=== PATIENT | female | born 1990 | race Caucasian/White ===

== ENCOUNTER 2018-07-14 21:34 | Emergency (ER) | payer OTHER ==
--- NOTE | 2018-07-14 23:51 | ED ---
Anxiety HPI - General Chief Complaint: Anxiety Stated Complaint: Anxiety, panic attacks Time Seen by Provider: 07/14/18 23:12 Source: patient, RN notes reviewed, old records reviewed Mode of arrival: ambulatory - History of Present Illness Initial Comments: This is a 28-year-old female going to significant stressor, patient with friends oncologist . Patient's feeling very stressed about this event. She also suffers from underlying anxiety and panic attacks at baseline. Patient states all symptoms have persisted MD Complaint: anxiety, heart racing -: days(s) Symptoms: dyspnea, palpitations, dry mouth, sense of impending doom Place: home Previous History of Same: Yes Severity: moderate Quality: improving Provoking factors: emotional stress, recent /illness of family member Improves With: nothing Worsens With: nothing Associated symptoms: chest pain, palpitations, anorexia - Related Data Home Medications: Home Medications Medication Instructions Recorded Confirmed No Known Home Medications 07/14/18 07/14/18 Allergies/Adverse Reactions: Allergies Allergy/AdvReac Type Severity Reaction Status Date / Time No Known Allergies Allergy Verified 07/14/18 21:51 Review of Systems ROS Statement: Those systems with pertinent positive or pertinent negative responses have been documented in the HPI. ROS Other: All systems not noted in ROS Statement are negative. Past Medical History Past Medical History: Thyroid Disorder History of Any Multi-Drug Resistant Organisms: None Reported Past Surgical History: No Surgical Hx Reported Past Psychological History: Anxiety, Panic Disorder Smoking Status: Current every day smoker Past Alcohol Use History: None Reported Past Drug Use History: None Reported General Exam Limitations: no limitations General appearance: alert, in no apparent distress, anxious Head exam: Present: atraumatic, normocephalic, normal inspection Eye exam: Present: normal appearance, PERRL, EOMI. Absent: scleral icterus, conjunctival injection, periorbital swelling ENT exam: Present: normal exam, mucous membranes moist Neck exam: Present: normal inspection. Absent: tenderness, meningismus, lymphadenopathy Respiratory exam: Present: normal lung sounds bilaterally. Absent: respiratory distress, wheezes, rales, rhonchi, stridor Cardiovascular Exam: Present: regular rate, normal rhythm, normal heart sounds. Absent: systolic murmur, diastolic murmur, rubs, gallop, clicks GI/Abdominal exam: Present: soft, normal bowel sounds. Absent: distended, tenderness, guarding, rebound, rigid Extremities exam: Present: normal inspection, full ROM, normal capillary refill. Absent: tenderness, pedal edema, joint swelling, calf tenderness Back exam: Present: normal inspection Neurological exam: Present: alert, oriented X3, CN II-XII intact Psychiatric exam: Present: normal affect, normal mood Skin exam: Present: warm, dry, intact, normal color. Absent: rash Course Vital Signs 07/14/18 07/15/18 21:47 00:22 Temperature 98.1 F 97.3 F L Pulse Rate 71 70 Respiratory 18 16 Rate Blood Pressure 132/83 128/70 O2 Sat by Pulse 100 100 Oximetry Medical Decision Making - Medical Decision Making 28 female the ER for evaluation anxiety panic attack and grief reaction. Patient given medication here in the ER feeling better and can be discharged home Disposition Clinical Impression: Acute anxiety, Panic attack Disposition: HOME SELF-CARE Instructions: Generalized Anxiety Disorder (ED) Is patient prescribed a controlled substance at d/c from ED?: No Referrals: Devin Birch MD [Primary Care Provider] - 1-2 days
[2018-07-15] MEDS ORDERED: LORazepam 1 MG TAB PO STA (00:11)
[2018-07-15] MEDS ORDERED: DIAZEPAM 5 MG TAB PO STA (00:11)
[2018-07-15 00:24] VITALS: BP 128/70; PULSE 70; RESP 16; TEMP 97.3
== END 2018-07-15 00:24 | disposition home or self-care (01) ==
LOC: EC 21:34
DX: F41.0 Panic disorder [episodic paroxysmal anxiety] (principal); F17.200 Nicotine dependence, unspecified, uncomplicated
CPT/HCPCS: 99283

== ENCOUNTER 2018-07-16 23:18 | Emergency (ER) | payer OTHER ==
[2018-07-16] MEDS ORDERED: ALPRAZolam 1 MG TAB PO STA (23:52)
--- NOTE | 2018-07-17 00:37 | ED ---
Anxiety HPI - General Chief Complaint: Anxiety Stated Complaint: Anxiety Time Seen by Provider: 07/16/18 23:32 Source: patient Mode of arrival: ambulatory - History of Present Illness Initial Comments: 28-year-old female past medical history of anxiety, and panic attacks presenting today for chief complaint of anxiety x 1.5 days. Patient states that she was seen here emergency department to 3 days ago following the of her uncle, which she states has brought her great anxiety. Pt states that she was treated with ativan and valium which helped with her anxiety allowing her to abort her symptoms and sleep that night. Pt states that about a day ago the patients anxiety began again, it starts as a chest pressure in the chest, and she has thoughts of impeding . Pt states that she cannot kick the anxiety with her usual home remedies including breathing exercises so she presented for evaluation. Upon arrival pt VS stable, pt complains of chest pressure, feelings of impeding . Pt denies fever, chills, cough, hemoptysis , calf pain, recent travel, history of blood clots/cancer, leg swelling, recent surgery/fracture, jaw pain, UE parathesias, or any other associated symptoms. Pt appears anxious upon arrival. - Related Data Home Medications: Previous Rx's Medication Instructions Recorded ALPRAZolam [Xanax] 0.25 mg PO HS PRN 3 Days #3 tab 07/17/18 Allergies/Adverse Reactions: Allergies Allergy/AdvReac Type Severity Reaction Status Date / Time No Known Allergies Allergy Verified 07/14/18 21:51 Review of Systems ROS Statement: Those systems with pertinent positive or pertinent negative responses have been documented in the HPI. ROS Other: All systems not noted in ROS Statement are negative. Constitutional: Denies: fever, chills, night sweats ENT: Denies: ear pain, throat pain Respiratory: Denies: cough, dyspnea, wheezes, hemoptysis, stridor Cardiovascular: Reports: chest pain (chest pressure ). Denies: palpitations, dyspnea on exertion Endocrine: Denies: fatigue Gastrointestinal: Denies: abdominal pain, nausea, vomiting, diarrhea, constipation, hematemesis, melena Genitourinary: Denies: urgency, dysuria Musculoskeletal: Denies: back pain Skin: Denies: rash, lesions Neurological: Denies: headache, weakness, numbness, paresthesias, confusion, abnormal gait Past Medical History Past Medical History: Thyroid Disorder History of Any Multi-Drug Resistant Organisms: None Reported Past Surgical History: No Surgical Hx Reported Past Psychological History: Anxiety, Panic Disorder Smoking Status: Current every day smoker Past Alcohol Use History: None Reported Past Drug Use History: None Reported General Exam - General Exam Comments Initial Comments: General: The patient is awake and alert, appears anxious but well. Eye: Pupils are equal, round and reactive to light, extra-ocular movements are intact. No nystagmus. There is normal conjunctiva bilaterally. No signs of icterus. Ears, nose, mouth and throat: There are moist mucous membranes and no oral lesions. Neck: The neck is supple, there is no tenderness or JVD. Cardiovascular: There is a regular rate and rhythm. No murmur, rub or gallop is appreciated. Respiratory: Lungs are clear to auscultation, respirations are non-labored, breath sounds are equal. No wheezes, stridor, rales, or rhonchi. Gastrointestinal: Soft, non-distended, non-tender abdomen without masses or organomegaly noted. There is no rebound or guarding present. No CVA tenderness. Bowel sounds are unremarkable. Musculoskeletal: Normal ROM, no tenderness. Strength 5/5. Sensation intact. Pulses equal bilaterally 2+. Neurological: A&O x 3. CN II-XII intact, There are no obvious motor or sensory deficits. Coordination appears grossly intact. Speech is normal. Skin: Skin is warm and dry and no rashes or lesions are noted. Psychiatric: Cooperative, appropriate mood & affect, normal judgment. Limitations: no limitations Course Vital Signs 07/16/18 07/17/18 07/17/18 23:27 01:05 02:17 Temperature 97.9 F 97.3 F L Pulse Rate 62 70 76 Respiratory 20 18 18 Rate Blood Pressure 134/83 113/68 119/70 O2 Sat by Pulse 95 98 99 Oximetry Medical Decision Making - Medical Decision Making 28yo with cc of anxiety attack. EKG showed nonspecific ST depression, remainder unremarkable. Cardiac profile as well as troponins negative. Chest x-ray negative. Patient given 1 mg of Xanax which he stated alleviate her symptoms. Patient does have follow-up with primary care provider scheduled this week. Patient was given outside prescription for 0.25 mg Xanax for panic attacks as needed, 3 tabs. The use of and as well as risks of xanax were discussed at length with patient. Patient verbalizes understanding. Patient states that she is ready for discharge. After discussing case with Dr. Bishop we feel patient is stable for discharge and the symptoms are due to panic attack/ anxiety. Patient denies any suicidal homicidal ideations. Pt is accompanied by significant other for mode of transportation home. Return parameters as well as all findings discussed at length the patient. Patient verbalizes understanding. Patient denied questions at this time. Patient is agreeable discharge. - Lab Data Result diagrams: 07/17/18 01:00 07/17/18 01:00 Lab Results 07/17/18 07/17/18 07/17/18 Range/Units 01:00 01:00 01:00 WBC 8.6 (3.8-10.6) k/uL RBC 4.85 (3.80-5.40) m/uL Hgb 13.8 (11.4-16.0) gm/dL Hct 42.1 (34.0-46.0) % MCV 86.9 (80.0-100.0) fL MCH 28.4 (25.0-35.0) pg MCHC 32.7 (31.0-37.0) g/dL RDW 13.0 (11.5-15.5) % Plt Count 287 (150-450) k/uL Neutrophils % 77 % Lymphocytes % 17 % Monocytes % 4 % Eosinophils % 1 % Basophils % 0 % Neutrophils # 6.6 (1.3-7.7) k/uL Lymphocytes # 1.5 (1.0-4.8) k/uL Monocytes # 0.3 (0-1.0) k/uL Eosinophils # 0.1 (0-0.7) k/uL Basophils # 0.0 (0-0.2) k/uL D-Dimer (<0.60) mg/L FEU Sodium 141 (137-145) mmol/L Potassium 3.6 (3.5-5.1) mmol/L Chloride 109 H (98-107) mmol/L Carbon Dioxide 24 (22-30) mmol/L Anion Gap 8 mmol/L BUN 10 (7-17) mg/dL Creatinine 0.61 (0.52-1.04) mg/dL Est GFR (CKD-EPI)AfAm >90 (>60 ml/min/1.73 sqM) Est GFR (CKD-EPI)NonAf >90 (>60 ml/min/1.73 sqM) Glucose 99 (74-99) mg/dL Calcium 10.7 H (8.4-10.2) mg/dL Total Bilirubin 0.6 (0.2-1.3) mg/dL AST 23 (14-36) U/L ALT 26 (9-52) U/L Alkaline Phosphatase 50 (38-126) U/L Total Creatine Kinase 37 (30-135) U/L CK-MB (CK-2) <0.2 (0.0-2.4) ng/mL CK-MB (CK-2) Rel Index Troponin I <0.012 (0.000-0.034) ng/mL Total Protein 7.6 (6.3-8.2) g/dL Albumin 4.7 (3.5-5.0) g/dL 07/17/18 Range/Units 01:00 WBC (3.8-10.6) k/uL RBC (3.80-5.40) m/uL Hgb (11.4-16.0) gm/dL Hct (34.0-46.0) % MCV (80.0-100.0) fL MCH (25.0-35.0) pg MCHC (31.0-37.0) g/dL RDW (11.5-15.5) % Plt Count (150-450) k/uL Neutrophils % % Lymphocytes % % Monocytes % % Eosinophils % % Basophils % % Neutrophils # (1.3-7.7) k/uL Lymphocytes # (1.0-4.8) k/uL Monocytes # (0-1.0) k/uL Eosinophils # (0-0.7) k/uL Basophils # (0-0.2) k/uL D-Dimer <0.17 (<0.60) mg/L FEU Sodium (137-145) mmol/L Potassium (3.5-5.1) mmol/L Chloride (98-107) mmol/L Carbon Dioxide (22-30) mmol/L Anion Gap mmol/L BUN (7-17) mg/dL Creatinine (0.52-1.04) mg/dL Est GFR (CKD-EPI)AfAm (>60 ml/min/1.73 sqM) Est GFR (CKD-EPI)NonAf (>60 ml/min/1.73 sqM) Glucose (74-99) mg/dL Calcium (8.4-10.2) mg/dL Total Bilirubin (0.2-1.3) mg/dL AST (14-36) U/L ALT (9-52) U/L Alkaline Phosphatase (38-126) U/L Total Creatine Kinase (30-135) U/L CK-MB (CK-2) (0.0-2.4) ng/mL CK-MB (CK-2) Rel Index Troponin I (0.000-0.034) ng/mL Total Protein (6.3-8.2) g/dL Albumin (3.5-5.0) g/dL Disposition Clinical Impression: Anxiety Disposition: HOME SELF-CARE Instructions: Generalized Anxiety Disorder (ED) Additional Instructions: Please use medication as discussed. Please follow-up with family doctor in the next 2 days.. Please return to emergency room if the symptoms increase or worsen or for any other concerns. Prescriptions: ALPRAZolam [Xanax] 0.25 mg PO HS PRN 3 Days #3 tab PRN Reason: Anxiety Is patient prescribed a controlled substance at d/c from ED?: No Referrals: Dale Birch DO [Primary Care Provider] - 1-2 days Time of Disposition: 02:02
[2018-07-17 01:08] VITALS: RESP 18
--- NOTE | 2018-07-17 01:13 | XR ---
EXAMINATION TYPE: XR chest 2V DATE OF EXAM: 07/17/2018 COMPARISON: NONE HISTORY: Chest pain TECHNIQUE: Frontal and lateral views of the chest are obtained. FINDINGS: Heart and mediastinum are normal. Lungs are clear. Diaphragm is normal. Bony thorax appear s normal. Pulmonary vascularity is normal. IMPRESSION: Normal chest.
[2018-07-17 01:23] LABS: Basophils % (A) 0 %; Eosinophils # (A) 0.1 k/uL (0-0.7); Eosinophils % (A) 1 %; HCT 42.1 % (34.0-46.0); HGB 13.8 gm/dL (11.4-16.0); Lymphocytes # (A) 1.5 k/uL (1.0-4.8); Lymphocytes % (A) 17 %; MCH 28.4 pg (25.0-35.0); MCHC 32.7 g/dL (31.0-37.0); MCV 86.9 fL (80.0-100.0); Mean Platelet Volume 7.1; Monocytes # (A) 0.3 k/uL (0-1.0); Monocytes % (A) 4 %; Neutrophils # (A) 6.6 k/uL (1.3-7.7); Neutrophils % (A) 77 %; Platelet Count 287 k/uL (150-450); RBC 4.85 m/uL (3.80-5.40); WBC 8.6 k/uL (3.8-10.6)
[2018-07-17 01:35] LABS: ALT 26 U/L (9-52); AST 23 U/L (14-36); Albumin 4.7 g/dL (3.5-5.0); Alkaline Phosphatase 50 U/L (38-126); Anion Gap 8 mmol/L; Blood Urea Nitrogen 10 mg/dL (7-17); Calcium 10.7 mg/dL (8.4-10.2); Carbon Dioxide 24 mmol/L (22-30); Chloride 109 mmol/L (98-107); Glucose 99 mg/dL (74-99); Potassium 3.6 mmol/L (3.5-5.1); Sodium 141 mmol/L (137-145); Total Bilirubin 0.6 mg/dL (0.2-1.3); Total Protein 7.6 g/dL (6.3-8.2)
[2018-07-17 01:46] LABS: Creatine Kinase 37 U/L (30-135)
[2018-07-17 01:59] LABS: Creatine Kinase MB <0.2 ng/mL (0.0-2.4); Troponin I <0.012 ng/mL (0.000-0.034)
[2018-07-17 02:19] VITALS: BP 119/70; PULSE 76; TEMP 97.3
== END 2018-07-17 02:18 | disposition home or self-care (01) ==
LOC: EC 23:18
DX: F41.9 Anxiety disorder, unspecified (principal); F17.200 Nicotine dependence, unspecified, uncomplicated
CPT/HCPCS: 36415; 71046; 80053; 82550; 82553; 84484; 85025; 85379; 93005; 99284

== ENCOUNTER 2018-07-19 17:06 | Emergency (ER) | payer OTHER ==
[2018-07-19] MEDS ORDERED: KETOROLAC 30 MG/ML 1 ML VIAL IVP STA (18:01)
[2018-07-19] MEDS ORDERED: ONDANSETRON 4 MG/2 ML VIAL IVP STA (18:01)
[2018-07-19] MEDS ORDERED: SODIUM CHLORIDE 0.9% 1,000 ML IV ONE (18:01)
--- NOTE | 2018-07-19 18:04 | ED ---
General Adult HPI - General Chief complaint: Anxiety Stated complaint: NAUSEA X 5 DAYS, CONFUSION Time Seen by Provider: 07/19/18 17:40 Source: patient, RN notes reviewed, old records reviewed Mode of arrival: ambulatory Limitations: no limitations - History of Present Illness Initial comments: Patient's 28-year-old female presents emergency department today with 4 days of anxiety. She's been emergency department twice for her panic attacks. She is discharged the second time with prescription for Xanax. Patient was seen by her PCP and recently started on Lexapro today. Patient states she's been taking medicine. She reports that today she feels like she has nausea and abdominal pain she is a poor appetite unable to eat. Patient reports that she also complains of a migraine-like headache. Patient states that she has not taken any recent Xanax. Patient states that all of her symptoms seem to start 40 years ago after her uncle . - Related Data Home Medications Medication Instructions Recorded Confirmed Albuterol Inhaler [Ventolin Hfa 2 puff INHALATION RT-BID 07/19/18 07/19/18 Inhaler] Escitalopram [Lexapro] 10 mg PO DAILY 07/19/18 07/19/18 Multivitamin [Multivitamins Adult 1 tab PO DAILY 07/19/18 07/19/18 Gummies] Previous Rx's Medication Instructions Recorded ALPRAZolam [Xanax] 0.25 mg PO HS PRN 3 Days #3 tab 07/17/18 Allergies Allergy/AdvReac Type Severity Reaction Status Date / Time No Known Allergies Allergy Verified 07/19/18 17:19 Review of Systems ROS Statement: Those systems with pertinent positive or pertinent negative responses have been documented in the HPI. ROS Other: All systems not noted in ROS Statement are negative. Past Medical History Past Medical History: Thyroid Disorder History of Any Multi-Drug Resistant Organisms: None Reported Past Surgical History: No Surgical Hx Reported Past Psychological History: Anxiety, Panic Disorder Smoking Status: Current every day smoker Past Alcohol Use History: None Reported Past Drug Use History: None Reported General Exam - General Exam Comments Initial Comments: Well appearing 28-year-old female. Alert and oriented. Patient appears in no distress. General: Well appearing, well nourished, in no distress. Oriented x 3, normal mood and affect . Ambulating without difficulty. Skin: Good turgor, no rash, unusual bruising or prominent lesions Hair: Normal texture and distribution. HEENT: Head: Normocephalic, atraumatic, no visible or palpable masses, depressions, or scaring. Eyes: Visual acuity intact, conjunctiva clear, sclera non-icteric, EOM intact, PERRL. Ears: EACs clear, TMs translucent & cone of light visualized. hearing intact. Nose: No external lesions, mucosa non-inflamed, septum and turbinates normal Mouth: Mucous membranes moist, no mucosal lesions. Teeth/Gums: No obvious caries or periodontal disease. No gingival inflammation or significant resorption. Pharynx: Mucosa non-inflamed, no tonsillar hypertrophy or exudate Neck: Supple, without lesions, bruits, or adenopathy, thyroid non-enlarged and non-tender Heart: No cardiomegaly or thrills; regular rate and rhythm, no murmur or gallop Lungs: Clear to auscultation and percussion Abdomen: Bowel sounds normal, no tenderness, organomegaly, masses, or hernia Back: Spine normal without deformity or tenderness, no CVA tenderness Extremities: No amputations or deformities, cyanosis, edema or varicosities, peripheral pulses intact Musculoskeletal: Normal gait and station. No misalignment, asymmetry, crepitation, defects, tenderness, masses, effusions, decreased range of motion, instability, atrophy or abnormal strength or tone in the head, neck, spine, ribs , pelvis or extremities. Neurologic: CN 2-12 normal. Sensation to pain, touch, and proprioception normal. DTRs normal in upper and lower extremities. No pathologic reflexes. Psychiatric: Oriented X3, Patient appears anxious. Memory intact. Limitations: no limitations Course Vital Signs 07/19/18 17:16 Temperature 98.7 F Pulse Rate 106 H Respiratory 18 Rate Blood Pressure 121/87 O2 Sat by Pulse 99 Oximetry Medical Decision Making - Medical Decision Making 28-year-old female presents emergency room today with complaints of a she's not been eating well. Complaint of nausea as well. She has no abdominal tenderness. Otherwise appears clinically well on examination. No neural deficits. States she just feels foggy in her mind is racing. Discussed at this time we'll treat the Patient with IV fluids and migraine cocktail due to her migraine-like headache. She does report some relief at this time. We'll discharge the Patient with referrals for counseling and close follow-up with PCP. QUESTIONS answered. - Lab Data Lab Results 07/19/18 07/19/18 Range/Units 18:47 18:47 Urine Color Light Yellow Urine Appearance Clear (Clear) Urine pH 6.5 (5.0-8.0) Ur Specific [place] 1.005 (1.001-1.035) Urine Protein Negative (Negative) Urine Glucose (UA) Negative (Negative) Urine Ketones Trace H (Negative) Urine Blood Negative (Negative) Urine Nitrite Negative (Negative) Urine Bilirubin Negative (Negative) Urine Urobilinogen <2.0 (<2.0) mg/dL Ur Leukocyte Esterase Negative (Negative) Urine HCG, Qual Not Detected (Not Detectd) Disposition Clinical Impression: Anxiety Disposition: HOME SELF-CARE Condition: Good Instructions: Generalized Anxiety Disorder (ED) Additional Instructions: Patient advised to follow-up with PCP. Return to the emergency department if any alarming signs or symptoms occur. Is patient prescribed a controlled substance at d/c from ED?: No Referrals: Dale Birch DO [Primary Care Provider] - 1-2 days Time of Disposition: 20:06
[2018-07-19 19:01] LABS: Appearance,Urine Clear (Clear); Bilirubin,Urine Negative (Negative); Blood,Urine Negative (Negative); Color,Urine Light Yellow; Glucose,Urine (UA) Negative (Negative); Ketones,Urine Trace (Negative); Leukocyte Esterase,Urine Negative (Negative); Nitrite,Urine Negative (Negative); PH, Urine 6.5 (5.0-8.0); Protein,Urine Negative (Negative); Specific Gravity,Urine 1.005 (1.001-1.035); Urobilinogen,Urine <2.0 mg/dL (<2.0)
[2018-07-19] MEDS ORDERED: LORazepam 2 MG/ML INJ IV STA (19:38)
[2018-07-19] MEDS ORDERED: ORPHENADRINE 30 MG/ML 2 ML VIAL IVP STA (20:05)
[2018-07-19 20:38] VITALS: BP 131/67; PULSE 79; RESP 16; TEMP 97.9
== END 2018-07-19 20:42 | disposition home or self-care (01) ==
LOC: EC 17:06
DX: F41.0 Panic disorder [episodic paroxysmal anxiety] (principal); R51 Headache; F17.200 Nicotine dependence, unspecified, uncomplicated; Z79.899 Other long term (current) drug therapy
CPT/HCPCS: 81003; 81025; 99284; 96374; 96375 ×3; 96361 ×2; J2060; J2360; J2405; J1885

== ENCOUNTER 2018-07-25 20:42 | Emergency (ER) | payer OTHER ==
--- NOTE | 2018-07-25 22:24 | ED ---
General Adult HPI - General Chief complaint: Chest Pain Stated complaint: Chest feels warm, light headed, anxiety Time Seen by Provider: 07/25/18 21:43 Source: patient, RN notes reviewed Mode of arrival: ambulatory Limitations: no limitations - History of Present Illness Initial comments: Patient is a pleasant 28-year-old female presenting to the emergency department with chest fluttering. Onset of symptoms was prior to arrival. Symptoms lasted around 1 hour. Patient had fluttering in her chest. Patient states there may have been some mild indigestion as well. Patient did have some swelling of both of her palms. Patient states she suffers from bad anxiety and believes her symptoms are from her anxiety. Patient states she has had several recent visits for anxiety. Patient did recently see her doctor and was started on Lexapro. Patient is symptom-free at this time other than feeling anxious. - Related Data Home Medications Medication Instructions Recorded Confirmed Escitalopram [Lexapro] 10 mg PO HS 07/19/18 07/25/18 Ibuprofen [Motrin Ib] 200 mg PO Q6H PRN 07/25/18 07/25/18 Ondansetron Odt [Zofran Odt] 4 mg PO Q12HR PRN 07/25/18 07/25/18 Ranitidine HCl [Zantac] 150 mg PO DAILY PRN 07/25/18 07/25/18 Allergies Allergy/AdvReac Type Severity Reaction Status Date / Time No Known Allergies Allergy Verified 07/25/18 22:00 Review of Systems ROS Statement: Those systems with pertinent positive or pertinent negative responses have been documented in the HPI. ROS Other: All systems not noted in ROS Statement are negative. Constitutional: Denies: fever Eyes: Denies: eye pain ENT: Denies: ear pain Respiratory: Denies: cough Cardiovascular: Reports: palpitations Endocrine: Denies: fatigue Gastrointestinal: Denies: abdominal pain, vomiting Genitourinary: Denies: dysuria Musculoskeletal: Denies: back pain Skin: Denies: rash Neurological: Denies: weakness Psychiatric: Reports: anxiety Past Medical History Past Medical History: Thyroid Disorder History of Any Multi-Drug Resistant Organisms: None Reported Past Surgical History: No Surgical Hx Reported Past Psychological History: Anxiety, Panic Disorder Smoking Status: Current every day smoker Past Alcohol Use History: None Reported Past Drug Use History: None Reported General Exam Limitations: no limitations General appearance: alert, in no apparent distress Head exam: Present: atraumatic Eye exam: Present: normal appearance, PERRL ENT exam: Present: normal oropharynx Neck exam: Present: normal inspection Respiratory exam: Present: normal lung sounds bilaterally Cardiovascular Exam: Present: regular rate, normal rhythm Expanded Peripheral pulses: 2+: Radial (R), Radial (L), Dorsalis Pedis (R), Dorsalis Pedis (L) GI/Abdominal exam: Present: soft. Absent: tenderness Extremities exam: Present: normal inspection. Absent: pedal edema, calf tenderness Neurological exam: Present: alert Psychiatric exam: Present: normal affect, normal mood Skin exam: Present: normal color Course Vital Signs 07/25/18 21:04 Temperature 98.6 F Pulse Rate 96 Respiratory 18 Rate Blood Pressure 128/89 O2 Sat by Pulse 100 Oximetry EKG Findings - EKG Comments: EKG Findings:: Sinus rhythm at 75. WI 104. QRS 76. QT 356. QTc 397. Normal axis. Normal QRS. No acute ST change. Medical Decision Making - Medical Decision Making Patient reevaluated and resting comfortably in bed. Patient symptom-free at this time. Patient updated on results and need for follow-up. - Lab Data Result diagrams: 07/25/18 22:09 07/25/18 22:09 Lab Results 07/25/18 07/25/18 07/25/18 Range/Units 22:09 22:09 22:09 WBC 7.4 (3.8-10.6) k/uL RBC 4.75 (3.80-5.40) m/uL Hgb 14.5 (11.4-16.0) gm/dL Hct 40.5 (34.0-46.0) % MCV 85.3 (80.0-100.0) fL MCH 30.5 (25.0-35.0) pg MCHC 35.8 (31.0-37.0) g/dL RDW 12.9 (11.5-15.5) % Plt Count 289 (150-450) k/uL Neutrophils % 63 % Lymphocytes % 29 % Monocytes % 6 % Eosinophils % 1 % Basophils % 0 % Neutrophils # 4.6 (1.3-7.7) k/uL Lymphocytes # 2.2 (1.0-4.8) k/uL Monocytes # 0.5 (0-1.0) k/uL Eosinophils # 0.1 (0-0.7) k/uL Basophils # 0.0 (0-0.2) k/uL PT (9.0-12.0) sec INR (<1.2) APTT (22.0-30.0) sec Sodium 140 (137-145) mmol/L Potassium 3.8 (3.5-5.1) mmol/L Chloride 108 H (98-107) mmol/L Carbon Dioxide 24 (22-30) mmol/L Anion Gap 8 mmol/L BUN 7 (7-17) mg/dL Creatinine 0.54 (0.52-1.04) mg/dL Est GFR (CKD-EPI)AfAm >90 (>60 ml/min/1.73 sqM) Est GFR (CKD-EPI)NonAf >90 (>60 ml/min/1.73 sqM) Glucose 82 (74-99) mg/dL Calcium 9.9 (8.4-10.2) mg/dL Magnesium 2.1 (1.6-2.3) mg/dL Total Bilirubin 1.0 (0.2-1.3) mg/dL AST 20 (14-36) U/L ALT 34 (9-52) U/L Alkaline Phosphatase 42 (38-126) U/L Total Creatine Kinase 34 (30-135) U/L CK-MB (CK-2) <0.2 (0.0-2.4) ng/mL CK-MB (CK-2) Rel Index Troponin I <0.012 (0.000-0.034) ng/mL Total Protein 7.5 (6.3-8.2) g/dL Albumin 4.6 (3.5-5.0) g/dL 07/25/18 Range/Units 22:09 WBC (3.8-10.6) k/uL RBC (3.80-5.40) m/uL Hgb (11.4-16.0) gm/dL Hct (34.0-46.0) % MCV (80.0-100.0) fL MCH (25.0-35.0) pg MCHC (31.0-37.0) g/dL RDW (11.5-15.5) % Plt Count (150-450) k/uL Neutrophils % % Lymphocytes % % Monocytes % % Eosinophils % % Basophils % % Neutrophils # (1.3-7.7) k/uL Lymphocytes # (1.0-4.8) k/uL Monocytes # (0-1.0) k/uL Eosinophils # (0-0.7) k/uL Basophils # (0-0.2) k/uL PT 12.2 H (9.0-12.0) sec INR 1.3 H (<1.2) APTT 25.7 (22.0-30.0) sec Sodium (137-145) mmol/L Potassium (3.5-5.1) mmol/L Chloride (98-107) mmol/L Carbon Dioxide (22-30) mmol/L Anion Gap mmol/L BUN (7-17) mg/dL Creatinine (0.52-1.04) mg/dL Est GFR (CKD-EPI)AfAm (>60 ml/min/1.73 sqM) Est GFR (CKD-EPI)NonAf (>60 ml/min/1.73 sqM) Glucose (74-99) mg/dL Calcium (8.4-10.2) mg/dL Magnesium (1.6-2.3) mg/dL Total Bilirubin (0.2-1.3) mg/dL AST (14-36) U/L ALT (9-52) U/L Alkaline Phosphatase (38-126) U/L Total Creatine Kinase (30-135) U/L CK-MB (CK-2) (0.0-2.4) ng/mL CK-MB (CK-2) Rel Index Troponin I (0.000-0.034) ng/mL Total Protein (6.3-8.2) g/dL Albumin (3.5-5.0) g/dL - Radiology Data Radiology results: image reviewed (Chest x-ray shows no acute process) Disposition Clinical Impression: Palpitations Disposition: HOME SELF-CARE Condition: Stable Instructions: Heart Palpitations (ED), Anxiety (ED) Additional Instructions: Please follow-up with primary care physician in the next day or 2 for recheck. Return for chest pain, difficulty breathing, worsening or changing symptoms or other concerns. Is patient prescribed a controlled substance at d/c from ED?: No Referrals: Dale Birch DO [Primary Care Provider] - 1-2 days Time of Disposition: 00:14
--- NOTE | 2018-07-25 22:32 | XR ---
EXAMINATION: XR chest 2V DATE AND TIME: 07/25/2018 9:18 PM CLINICAL INDICATION: Pain TECHNIQUE: PA and lateral COMPARISON: 07/17/2018 FINDINGS: The lungs are clear. The pleural spaces are negative. The cardiac silhouette is not enlarged. The remainder of the mediastinal silhouette is unremarkable. The skeletal structures and soft tissues are negative for acute findings. IMPRESSION: NO ACUTE PROCESS.
[2018-07-25 23:11] LABS: ALT 34 U/L (9-52); AST 20 U/L (14-36); Albumin 4.6 g/dL (3.5-5.0); Alkaline Phosphatase 42 U/L (38-126); Anion Gap 8 mmol/L; Blood Urea Nitrogen 7 mg/dL (7-17); Calcium 9.9 mg/dL (8.4-10.2); Carbon Dioxide 24 mmol/L (22-30); Chloride 108 mmol/L (98-107); Glucose 82 mg/dL (74-99); Magnesium 2.1 mg/dL (1.6-2.3); Potassium 3.8 mmol/L (3.5-5.1); Sodium 140 mmol/L (137-145); Total Protein 7.5 g/dL (6.3-8.2)
[2018-07-25 23:14] LABS: INR 1.3 (<1.2); Partial Thromboplastin Time 25.7 sec (22.0-30.0); Prothrombin Time 12.2 sec (9.0-12.0)
[2018-07-25 23:21] LABS: Basophils % (A) 0 %; Eosinophils # (A) 0.1 k/uL (0-0.7); Eosinophils % (A) 1 %; HCT 40.5 % (34.0-46.0); HGB 14.5 gm/dL (11.4-16.0); Lymphocytes # (A) 2.2 k/uL (1.0-4.8); Lymphocytes % (A) 29 %; MCH 30.5 pg (25.0-35.0); MCHC 35.8 g/dL (31.0-37.0); MCV 85.3 fL (80.0-100.0); Mean Platelet Volume 7.6; Monocytes # (A) 0.5 k/uL (0-1.0); Monocytes % (A) 6 %; Neutrophils # (A) 4.6 k/uL (1.3-7.7); Neutrophils % (A) 63 %; Platelet Count 289 k/uL (150-450); RBC 4.75 m/uL (3.80-5.40); RDW 12.9 % (11.5-15.5); WBC 7.4 k/uL (3.8-10.6)
[2018-07-25 23:39] LABS: Creatine Kinase 34 U/L (30-135)
[2018-07-25 23:51] LABS: Creatine Kinase MB <0.2 ng/mL (0.0-2.4); Troponin I <0.012 ng/mL (0.000-0.034)
[2018-07-26 00:27] VITALS: BP 117/75; PULSE 84; RESP 16; TEMP 98.5
== END 2018-07-26 00:25 | disposition home or self-care (01) ==
LOC: EC 20:42
DX: R00.2 Palpitations (principal); M79.89 Other specified soft tissue disorders; F41.0 Panic disorder [episodic paroxysmal anxiety]; F17.200 Nicotine dependence, unspecified, uncomplicated; Z79.899 Other long term (current) drug therapy
CPT/HCPCS: 36415; 71046; 80053; 82550; 82553; 83735; 84484; 85025; 85610; 85730; 93005; 99285

== ENCOUNTER 2018-08-07 14:06 | Emergency (ER) | payer BC ==
[2018-08-07 14:22] VITALS: BP 126/86; PULSE 99; RESP 18; TEMP 98.6
[2018-08-07] MEDS ORDERED: MECLIZINE 12.5 MG TAB PO STA (16:14)
--- NOTE | 2018-08-07 16:14 | ED ---
General Adult HPI - General Chief complaint: Headache Stated complaint: Dizziness, sharp pain in head Time Seen by Provider: 08/07/18 15:43 Source: patient, RN notes reviewed Mode of arrival: ambulatory Limitations: no limitations - History of Present Illness Initial comments: 28-year-old female presents emergency Department chief complaint of dizziness and headache. Patient's had some ongoing issues in which she's had several ER visits and PCP visits. Patient states that she woke up moved quickly twice and states that she had room spinning dizziness. Patient states has resolved essentially though she has mild residual. She also became very flushed, hot feeling felt she was in a pass out. Patient denies any current chest pain, shortness breath. She does struggle with anxiety which she is on Lexapro and Ativan both new Medications. Patient denies any focal weakness. States her headache is shooting pain from the backside of her head towards her eyes. Denies any blurred vision no focal weakness. - Related Data Home Medications Medication Instructions Recorded Confirmed Escitalopram [Lexapro] 10 mg PO HS 07/19/18 08/07/18 LORazepam [Ativan] 0.5 mg PO DAILY 08/07/18 08/07/18 Previous Rx's Medication Instructions Recorded Meclizine [Antivert] 25 mg PO TID PRN #15 tab 08/07/18 Allergies Allergy/AdvReac Type Severity Reaction Status Date / Time No Known Allergies Allergy Verified 08/07/18 15:25 Review of Systems ROS Statement: Those systems with pertinent positive or pertinent negative responses have been documented in the HPI. ROS Other: All systems not noted in ROS Statement are negative. Past Medical History Past Medical History: Thyroid Disorder History of Any Multi-Drug Resistant Organisms: None Reported Past Surgical History: No Surgical Hx Reported Past Psychological History: Anxiety, Panic Disorder Smoking Status: Current every day smoker Past Alcohol Use History: None Reported Past Drug Use History: None Reported General Exam Limitations: no limitations General appearance: alert, in no apparent distress Head exam: Present: atraumatic, normocephalic, normal inspection Eye exam: Present: normal appearance, PERRL, EOMI. Absent: scleral icterus, conjunctival injection, periorbital swelling ENT exam: Present: normal exam, normal oropharynx, mucous membranes moist Neck exam: Present: normal inspection, full ROM. Absent: tenderness, meningismus, lymphadenopathy Respiratory exam: Present: normal lung sounds bilaterally. Absent: respiratory distress, wheezes, rales, rhonchi, stridor Cardiovascular Exam: Present: regular rate, normal rhythm, normal heart sounds. Absent: systolic murmur, diastolic murmur, rubs, gallop, clicks Extremities exam: Present: other (Fall range of motion of upper and lower extremities) Neurological exam: Present: alert, oriented X3, CN II-XII intact, reflexes normal. Absent: motor sensory deficit Skin exam: Present: warm, dry, intact, normal color. Absent: rash Course Vital Signs 08/07/18 14:20 Temperature 98.6 F Pulse Rate 99 Respiratory 18 Rate Blood Pressure 126/86 O2 Sat by Pulse 99 Oximetry EKG Findings - EKG Comments: EKG Findings:: EKG performed at 14:26 sinus rhythm with short OH rate of 90 OH 120 QRS 78 QT status QTC 3:30/413 there is no delta wave noted Medical Decision Making - Medical Decision Making 28-year-old female sent for multiple complaints dizziness, ongoing headaches. Patient has had multiple evaluations. Patient had CT here which is negative for acute intracranial hemorrhage or mass. Patient did have some vertigo-type symptoms was improved with Antivert. Patient follow-up neurology return parameters were discussed. Disposition Clinical Impression: Headache, Vertigo Disposition: HOME SELF-CARE Condition: Stable Instructions: Acute Headache (ED) Additional Instructions: Please return to the Emergency Department if symptoms worsen or any other concerns. Prescriptions: Meclizine [Antivert] 25 mg PO TID PRN #15 tab PRN Reason: Vertigo Is patient prescribed a controlled substance at d/c from ED?: No Referrals: None,Stated [Primary Care Provider] - 1-2 days Time of Disposition: 17:22
--- NOTE | 2018-08-07 17:04 | CT ---
EXAMINATION TYPE: CT brain wo con DATE OF EXAM: 08/07/2018 COMPARISON: None HISTORY: Headache, dizziness and head pressure. CT DLP: 1024.4 mGycm. Automated Exposure Control for Dose Reduction was Utilized. TECHNIQUE: CT scan of the head is performed without contrast. FINDINGS: Ventricles and sulci appear normal. There is no mass effect nor midline shift. There is no sign of intracranial hemorrhage. The calvarium is intact. IMPRESSION: Negative CT scan of the brain..
== END 2018-08-07 17:29 | disposition home or self-care (01) ==
LOC: EC 14:06
DX: R51 Headache (principal); R42 Dizziness and giddiness; R23.2 Flushing; F41.0 Panic disorder [episodic paroxysmal anxiety]; F17.200 Nicotine dependence, unspecified, uncomplicated; Z79.899 Other long term (current) drug therapy
CPT/HCPCS: 70450; 93005; 99284

== ENCOUNTER 2018-08-13 13:45 | Emergency (ER) | payer BC ==
[2018-08-13 13:57] VITALS: TEMP 98.1
[2018-08-13] MEDS ORDERED: SODIUM CHLORIDE 0.9% 1,000 ML IV STA (14:45)
[2018-08-13] MEDS ORDERED: ONDANSETRON 4 MG/2 ML VIAL IVP STA (14:45)
[2018-08-13 15:22] LABS: Basophils % (A) 0 %; Eosinophils % (A) 1 %; HCT 42.4 % (34.0-46.0); HGB 14.6 gm/dL (11.4-16.0); Lymphocytes # (A) 0.8 k/uL (1.0-4.8); Lymphocytes % (A) 14 %; MCHC 34.5 g/dL (31.0-37.0); Mean Platelet Volume 7.2; Monocytes # (A) 0.3 k/uL (0-1.0); Monocytes % (A) 4 %; Neutrophils % (A) 81 %; Platelet Count 282 k/uL (150-450); RBC 4.87 m/uL (3.80-5.40); RDW 13.2 % (11.5-15.5); WBC 6.2 k/uL (3.8-10.6)
[2018-08-13 15:27] LABS: Appearance,Urine Clear (Clear); Bilirubin,Urine Negative (Negative); Blood,Urine Negative (Negative); Color,Urine Light Yellow; Glucose,Urine (UA) Negative (Negative); Ketones,Urine Negative (Negative); Leukocyte Esterase,Urine Negative (Negative); Nitrite,Urine Negative (Negative); Protein,Urine Negative (Negative); Specific Gravity,Urine 1.003 (1.001-1.035); Urobilinogen,Urine <2.0 mg/dL (<2.0)
[2018-08-13 15:31] LABS: ALT 28 U/L (9-52); AST 18 U/L (14-36); Albumin 4.6 g/dL (3.5-5.0); Alkaline Phosphatase 50 U/L (38-126); Amylase 48 U/L (30-110); Anion Gap 8 mmol/L; Blood Urea Nitrogen 7 mg/dL (7-17); Calcium 10.1 mg/dL (8.4-10.2); Carbon Dioxide 29 mmol/L (22-30); Chloride 107 mmol/L (98-107); Glucose 97 mg/dL (74-99); Lipase 135 U/L (23-300); Magnesium 1.9 mg/dL (1.6-2.3); Sodium 144 mmol/L (137-145); Total Bilirubin 0.7 mg/dL (0.2-1.3); Total Protein 7.5 g/dL (6.3-8.2)
--- NOTE | 2018-08-13 15:34 | ED ---
General Adult HPI - General Chief complaint: Recheck/Abnormal Lab/Rx Stated complaint: Nausea Time Seen by Provider: 08/13/18 14:37 Source: patient, RN notes reviewed Mode of arrival: ambulatory Limitations: no limitations - History of Present Illness Initial comments: This is a 28-year-old female presents emergency Department with multiple complaints. Patient's had several ER visits at multiple hospitals for same problems. Patient states that she has been told her to her anxiety. Patient states she does have underlying anxiety which she takes Lexapro and Ativan for. She states that he morning she wakes up feeling nauseated and she is very shaky. Patient states that she fills throughout the day states that she feels hungry but cannot eat. Patient states that she's also had headaches and dizziness. She did have CT which was negative. Patient follow-up with her therapist and PCP. They told her this is still her anxiety causing her issues. Patient does not believe it and feels that there something else wrong with her. Patient's concerned that she may have Lyme disease, thyroid dysfunction. Patient states that she did have lab work recently which was unremarkable. Patient denies any chance . She states that she just had her mental cycle. Denies any dysuria, hematuria, change in bowel habits. - Related Data Home Medications Medication Instructions Recorded Confirmed Escitalopram [Lexapro] 10 mg PO HS 07/19/18 08/13/18 LORazepam [Ativan] 0.5 mg PO DAILY PRN 08/07/18 08/13/18 Previous Rx's Medication Instructions Recorded Omeprazole [PriLOSEC] 20 mg PO AC-BRKFST #14 cap 08/13/18 Ondansetron Odt [Zofran Odt] 4 mg PO Q8HR PRN #10 tab 08/13/18 Allergies Allergy/AdvReac Type Severity Reaction Status Date / Time No Known Allergies Allergy Verified 08/13/18 14:24 Review of Systems ROS Statement: Those systems with pertinent positive or pertinent negative responses have been documented in the HPI. ROS Other: All systems not noted in ROS Statement are negative. Past Medical History Past Medical History: Thyroid Disorder History of Any Multi-Drug Resistant Organisms: None Reported Past Surgical History: No Surgical Hx Reported Past Psychological History: Anxiety, Panic Disorder Smoking Status: Current every day smoker Past Alcohol Use History: None Reported Past Drug Use History: None Reported General Exam Limitations: no limitations General appearance: alert, in no apparent distress Head exam: Present: atraumatic, normocephalic, normal inspection Eye exam: Present: normal appearance, PERRL, EOMI. Absent: scleral icterus, conjunctival injection, periorbital swelling ENT exam: Present: normal exam, normal oropharynx, mucous membranes moist, TM's normal bilaterally, normal external ear exam Neck exam: Present: normal inspection, full ROM. Absent: tenderness, meningismus, lymphadenopathy Respiratory exam: Present: normal lung sounds bilaterally. Absent: respiratory distress, wheezes, rales, rhonchi, stridor Cardiovascular Exam: Present: regular rate, normal rhythm, normal heart sounds. Absent: systolic murmur, diastolic murmur, rubs, gallop, clicks GI/Abdominal exam: Present: soft, normal bowel sounds. Absent: distended, tenderness, guarding, rebound, rigid Back exam: Present: full ROM. Absent: tenderness, CVA tenderness (R), CVA tenderness (L) Neurological exam: Present: alert, oriented X3, CN II-XII intact, reflexes normal, other (Finger to nose intact bilaterally ). Absent: motor sensory deficit Psychiatric exam: Present: anxious Skin exam: Present: warm, dry, intact, normal color. Absent: rash Course Vital Signs 08/13/18 13:53 Temperature 98.1 F Pulse Rate 98 Respiratory 18 Rate Blood Pressure 117/77 O2 Sat by Pulse 99 Oximetry Medical Decision Making - Medical Decision Making 28-year-old female present for multiple complaints. Patient had lab work urinalysis unremarkable. Patient symptoms most likely related to anxiety as she 's been told that multiple ERs comment by her therapist. Patient had no acute findings. Patient will be discharged. Return parameters were discussed. - Lab Data Result diagrams: 08/13/18 15:00 08/13/18 15:00 Lab Results 08/13/18 08/13/18 08/13/18 Range/Units 15:00 15:00 15:00 WBC 6.2 (3.8-10.6) k/uL RBC 4.87 (3.80-5.40) m/uL Hgb 14.6 (11.4-16.0) gm/dL Hct 42.4 (34.0-46.0) % MCV 87.0 (80.0-100.0) fL MCH 30.0 (25.0-35.0) pg MCHC 34.5 (31.0-37.0) g/dL RDW 13.2 (11.5-15.5) % Plt Count 282 (150-450) k/uL Neutrophils % 81 % Lymphocytes % 14 % Monocytes % 4 % Eosinophils % 1 % Basophils % 0 % Neutrophils # 5.0 (1.3-7.7) k/uL Lymphocytes # 0.8 L (1.0-4.8) k/uL Monocytes # 0.3 (0-1.0) k/uL Eosinophils # 0.0 (0-0.7) k/uL Basophils # 0.0 (0-0.2) k/uL Sodium 144 (137-145) mmol/L Potassium 4.0 (3.5-5.1) mmol/L Chloride 107 (98-107) mmol/L Carbon Dioxide 29 (22-30) mmol/L Anion Gap 8 mmol/L BUN 7 (7-17) mg/dL Creatinine 0.63 (0.52-1.04) mg/dL Est GFR (CKD-EPI)AfAm >90 (>60 ml/min/1.73 sqM) Est GFR (CKD-EPI)NonAf >90 (>60 ml/min/1.73 sqM) Glucose 97 (74-99) mg/dL Calcium 10.1 (8.4-10.2) mg/dL Magnesium 1.9 (1.6-2.3) mg/dL Total Bilirubin 0.7 (0.2-1.3) mg/dL AST 18 (14-36) U/L ALT 28 (9-52) U/L Alkaline Phosphatase 50 (38-126) U/L Total Protein 7.5 (6.3-8.2) g/dL Albumin 4.6 (3.5-5.0) g/dL Amylase 48 (30-110) U/L Lipase 135 (23-300) U/L TSH 0.839 (0.465-4.680) mIU/L Urine Color Light Yellow Urine Appearance Clear (Clear) Urine pH 8.0 (5.0-8.0) Ur Specific [place] 1.003 (1.001-1.035) Urine Protein Negative (Negative) Urine Glucose (UA) Negative (Negative) Urine Ketones Negative (Negative) Urine Blood Negative (Negative) Urine Nitrite Negative (Negative) Urine Bilirubin Negative (Negative) Urine Urobilinogen <2.0 (<2.0) mg/dL Ur Leukocyte Esterase Negative (Negative) Urine HCG, Qual (Not Detectd) Urine Opiates Screen Not Detected (NotDetected) Ur Oxycodone Screen Not Detected (NotDetected) Urine Methadone Screen Not Detected (NotDetected) Ur Propoxyphene Screen Not Detected (NotDetected) Ur Barbiturates Screen Not Detected (NotDetected) U Tricyclic Antidepress Not Detected (NotDetected) Ur Phencyclidine Scrn Not Detected (NotDetected) Ur Amphetamines Screen Not Detected (NotDetected) U Methamphetamines Scrn Not Detected (NotDetected) U Benzodiazepines Scrn Detected H (NotDetected) Urine Cocaine Screen Not Detected (NotDetected) U Marijuana (THC) Screen Not Detected (NotDetected) 08/13/18 Range/Units 15:00 WBC (3.8-10.6) k/uL RBC (3.80-5.40) m/uL Hgb (11.4-16.0) gm/dL Hct (34.0-46.0) % MCV (80.0-100.0) fL MCH (25.0-35.0) pg MCHC (31.0-37.0) g/dL RDW (11.5-15.5) % Plt Count (150-450) k/uL Neutrophils % % Lymphocytes % % Monocytes % % Eosinophils % % Basophils % % Neutrophils # (1.3-7.7) k/uL Lymphocytes # (1.0-4.8) k/uL Monocytes # (0-1.0) k/uL Eosinophils # (0-0.7) k/uL Basophils # (0-0.2) k/uL Sodium (137-145) mmol/L Potassium (3.5-5.1) mmol/L Chloride (98-107) mmol/L Carbon Dioxide (22-30) mmol/L Anion Gap mmol/L BUN (7-17) mg/dL Creatinine (0.52-1.04) mg/dL Est GFR (CKD-EPI)AfAm (>60 ml/min/1.73 sqM) Est GFR (CKD-EPI)NonAf (>60 ml/min/1.73 sqM) Glucose (74-99) mg/dL Calcium (8.4-10.2) mg/dL Magnesium (1.6-2.3) mg/dL Total Bilirubin (0.2-1.3) mg/dL AST (14-36) U/L ALT (9-52) U/L Alkaline Phosphatase (38-126) U/L Total Protein (6.3-8.2) g/dL Albumin (3.5-5.0) g/dL Amylase (30-110) U/L Lipase (23-300) U/L TSH (0.465-4.680) mIU/L Urine Color Urine Appearance (Clear) Urine pH (5.0-8.0) Ur Specific [place] (1.001-1.035) Urine Protein (Negative) Urine Glucose (UA) (Negative) Urine Ketones (Negative) Urine Blood (Negative) Urine Nitrite (Negative) Urine Bilirubin (Negative) Urine Urobilinogen (<2.0) mg/dL Ur Leukocyte Esterase (Negative) Urine HCG, Qual Not Detected (Not Detectd) Urine Opiates Screen (NotDetected) Ur Oxycodone Screen (NotDetected) Urine Methadone Screen (NotDetected) Ur Propoxyphene Screen (NotDetected) Ur Barbiturates Screen (NotDetected) U Tricyclic Antidepress (NotDetected) Ur Phencyclidine Scrn (NotDetected) Ur Amphetamines Screen (NotDetected) U Methamphetamines Scrn (NotDetected) U Benzodiazepines Scrn (NotDetected) Urine Cocaine Screen (NotDetected) U Marijuana (THC) Screen (NotDetected) Disposition Clinical Impression: Anxiety, Nausea, Dizziness Disposition: HOME SELF-CARE Condition: Stable Instructions: Anxiety (ED) Additional Instructions: Please return to the Emergency Department if symptoms worsen or any other concerns. Prescriptions: Omeprazole [PriLOSEC] 20 mg PO AC-BRKFST #14 cap Ondansetron Odt [Zofran Odt] 4 mg PO Q8HR PRN #10 tab PRN Reason: Nausea Is patient prescribed a controlled substance at d/c from ED?: No Referrals: Leelee Messina MD [Primary Care Provider] - 1-2 days Time of Disposition: 16:09
[2018-08-13 15:42] LABS: Amphetamine Screen,Urine Not Detected (NotDetected); Barbiturate Screen,Urine Not Detected (NotDetected); Benzodiazepines Screen,Urine Detected (NotDetected); Cocaine Screen,Urine Not Detected (NotDetected); Methadone Screen, Urine Not Detected (NotDetected); Opiate Screen,Urine Not Detected (NotDetected); Oxycodone Screen, Urine Not Detected (NotDetected); Phencyclidine Screen,Urine Not Detected (NotDetected); Tricyclic Antidepressant,Urine Not Detected (NotDetected); Urn Cannabinoid Scrn Not Detected (NotDetected)
[2018-08-13 16:44] VITALS: BP 101/65; PULSE 75; RESP 16
== END 2018-08-13 16:43 | disposition home or self-care (01) ==
LOC: EC 13:45
DX: F41.9 Anxiety disorder, unspecified (principal); R42 Dizziness and giddiness; R51 Headache; F17.200 Nicotine dependence, unspecified, uncomplicated; Z79.899 Other long term (current) drug therapy
CPT/HCPCS: 36415; 80053; 84443; 82150; 83690; 83735; 85025; 81003; 81025; 86618; 80306; 99283; 96374; 96361; J2405

== ENCOUNTER 2018-08-20 17:33 | Emergency (ER) | payer BC ==
[2018-08-20 17:43] VITALS: BP 121/78; PULSE 65; RESP 18; TEMP 98.6
[2018-08-20] MEDS ORDERED: LORazepam 1 MG TAB PO STA (18:02)
--- NOTE | 2018-08-20 18:06 | ED ---
Allergic Reaction HPI - General Chief complaint: Allergic Reaction Stated complaint: HARD TO SWALLOW Time Seen by Provider: 08/20/18 17:46 Source: patient Mode of arrival: ambulatory Limitations: no limitations - History of Present Illness Initial Comments: Patient is a 28-year-old presenting for possible ALLERGIC reaction. She states that she has severe anxiety and then around 3:57 PM today, she started having some redness in her neck area as well as some throat discomfort and trouble swallowing. Her only change in diet is that she started green tea over the last day. She denies any difficulty breathing or wheezing. She also denies any abdominal complaints, nausea/vomiting/diarrhea. - Related Data Home Medications Medication Instructions Recorded Confirmed Escitalopram [Lexapro] 10 mg PO HS 07/19/18 08/20/18 LORazepam [Ativan] 0.5 mg PO DAILY PRN 08/07/18 08/20/18 Allergies Allergy/AdvReac Type Severity Reaction Status Date / Time No Known Allergies Allergy Verified 08/20/18 17:53 Review of Systems ROS Statement: Those systems with pertinent positive or pertinent negative responses have been documented in the HPI. Constitutional: Negative for chills, fatigue and fever. HENT: Negative for congestion. Positive for throat discomfort Respiratory: Negative for chest tightness, shortness of breath and wheezing. Negative for cough Cardiovascular: Negative for chest pain and palpitations. Gastrointestinal: Negative for abdominal pain. Negative for abdominal distention , diarrhea, nausea and vomiting. Genitourinary: Negative for dysuria. Musculoskeletal: Negative for back pain, neck pain and neck stiffness. Skin: Positive for color change. Neurological: Negative for dizziness, speech difficulty, weakness and light- headedness. Psychiatric/Behavioral: Negative for agitation and confusion. Negative for anxiety ROS Other: All systems not noted in ROS Statement are negative. Past Medical History Past Medical History: Thyroid Disorder History of Any Multi-Drug Resistant Organisms: None Reported Past Surgical History: No Surgical Hx Reported Past Psychological History: Anxiety, Panic Disorder Smoking Status: Current every day smoker Past Alcohol Use History: None Reported Past Drug Use History: None Reported General Exam - General Exam Comments Initial Comments: Constitutional: Pt is oriented to person, place, and time. Pt appears well- developed and well-nourished. No distress. Oropharynx: No pharyngeal edema or exudates. No findings consistent with an ALLERGIC reaction Head: Normocephalic and atraumatic. Eyes: EOM are normal. Neck: Normal range of motion. Neck supple. Cardiovascular: Normal rate, regular rhythm, S1 normal, S2 normal and normal heart sounds. Exam reveals no gallop and no friction rub. No murmur heard. Pulmonary/Chest: Effort normal and breath sounds normal. No tachypnea and no bradypnea. No respiratory distress. No wheezes or rales noted. Abdominal: Soft. Bowel sounds are normal. Pt exhibits no shifting dullness, no distension, no pulsatile liver, no fluid wave, no abdominal bruit and no ascites. There is no tenderness. There is no rigidity, no rebound, no guarding, no tenderness at McBurney's point and negative De La Cruz's sign. Musculoskeletal: Normal range of motion. Neurological: Pt is alert and oriented to person, place, and time. No cranial nerve deficit. Skin: Skin is warm and dry. No rash noted. Pt is not diaphoretic. No erythema. No pallor. Psychiatric: Pt has a normal mood and affect. Pt behavior is normal. Thought content normal. Limitations: no limitations Course Vital Signs 08/20/18 17:41 Temperature 98.6 F Pulse Rate 65 Respiratory 18 Rate Blood Pressure 121/78 O2 Sat by Pulse 100 Oximetry Medical Decision Making - Medical Decision Making Based on physical exam, it was suspected that this was not an ALLERGIC reaction. However it cannot be completely excluded and therefore the patient was offered prednisone, Zantac/Pepcid, Benadryl. However, the patient calmly declined and stated that she had these medicines at home and would prefer to take him home. She thought that this symptoms may be secondary to a panic attack and therefore patient was given her home dose of Ativan. At the time of disposition, the patient showed no evidence of ALLERGIC reaction and was not hypoxic or in respiratory distress. Explained that we will discharge the patient home and patient is to follow up with PCP in 1-2 days and return to the ED if symptoms worsen. Pt is agreeable to plan. Disposition Clinical Impression: Throat discomfort Disposition: HOME SELF-CARE Condition: Good Instructions: Anaphylaxis (ED) Is patient prescribed a controlled substance at d/c from ED?: No Referrals: Leelee Messina MD [Primary Care Provider] - 1-2 days Time of Disposition: 18:06
== END 2018-08-20 18:32 | disposition home or self-care (01) ==
LOC: EC 17:33
DX: R07.0 Pain in throat (principal); R13.10 Dysphagia, unspecified; F41.0 Panic disorder [episodic paroxysmal anxiety]; F17.200 Nicotine dependence, unspecified, uncomplicated; Z79.899 Other long term (current) drug therapy
CPT/HCPCS: 99283

== ENCOUNTER 2018-08-23 00:12 | Emergency (ER) | payer BC ==
[2018-08-23 00:18] VITALS: RESP 16
[2018-08-23] MEDS ORDERED: diphenhydrAMINE 25 MG CAP PO STA (01:02)
[2018-08-23] MEDS ORDERED: PROCHLORPERAZINE 5 MG TAB PO STA (01:02)
--- NOTE | 2018-08-23 01:04 | ED ---
Anxiety HPI - General Chief Complaint: Anxiety Stated Complaint: not feeling well Time Seen by Provider: 08/23/18 00:33 Source: patient Mode of arrival: ambulatory - History of Present Illness Initial Comments: Patient is a 28-year-old female with a history of depression and anxiety who is started on Lexapro approximately 5 or 6 weeks ago. Patient reports that since being started on Lexapro she is feels as though she's having worsening anxiety. She states that she has discussed this with her therapist and was advised that it would take 6-8 weeks for the Lexapro to take effect. Patient reports that she was very stressed about [place] as this is the first [place] after the loss of a close family member and she was also stressed about money because she has missed a lot of work over the past 6-8 weeks due to her anxiety. Patient reports that throughout the day she's had progressively worsening feeling of anxiety which is caused her headache. She did take a half of a 0.5 mg Ativan while at her family [employer] dinner around 4 PM and upon returning home between 9 and 10 PM she took an additional full pill of 0.5 mg of Ativan. Patient reports that despite taking this she still felt very anxious and uncomfortable and couldn't sleep so she asked her boyfriend bring her the ER for reevaluation. Reports that when she becomes very anxious she gets tense and develops a headache she did have a head CT a few weeks ago due to a headache and it was negative. Patient states whenever she has a headache she begins to feel very anxious that she probably has a brain tumor and this worsens her anxiety and her headache. - Related Data Home Medications: Home Medications Medication Instructions Recorded Confirmed Escitalopram [Lexapro] 10 mg PO HS 07/19/18 08/20/18 LORazepam [Ativan] 0.5 mg PO DAILY PRN 08/07/18 08/20/18 Allergies/Adverse Reactions: Allergies Allergy/AdvReac Type Severity Reaction Status Date / Time No Known Allergies Allergy Verified 08/23/18 00:17 Review of Systems ROS Statement: Those systems with pertinent positive or pertinent negative responses have been documented in the HPI. ROS Other: All systems not noted in ROS Statement are negative. Past Medical History Past Medical History: Thyroid Disorder History of Any Multi-Drug Resistant Organisms: None Reported Past Surgical History: No Surgical Hx Reported Past Psychological History: Anxiety, Panic Disorder Smoking Status: Current every day smoker Past Alcohol Use History: None Reported Past Drug Use History: None Reported General Exam - General Exam Comments Initial Comments: Physical Exam GENERAL: Patient is well-developed and well-nourished. Patient is nontoxic and well- hydrated and is in no distress. HENT: Normocephalic, Atraumatic. EYES: PERRL, EOMI PULMONARY: Unlabored respirations. No audible rales rhonchi or wheezing was noted. CARDIOVASCULAR: There is a regular rate and rhythm without any murmurs gallops or rubs. ABDOMEN: Soft and nontender with normal bowel sounds. SKIN: Skin is clear with no lesions or rashes and otherwise unremarkable. : Deferred NEUROLOGIC: Patient is alert and oriented x3. Moving all extremities spontaneously MUSCULOSKELETAL: Normal extremities with adequate strength and full range of motion. No lower extremity swelling or edema. No calf tenderness. PSYCHIATRIC: Patient is Limitations: no limitations Limitations: no limitations Course Vital Signs 08/23/18 08/23/18 00:14 01:19 Temperature 98.3 F 98.6 F Pulse Rate 88 67 Respiratory 16 16 Rate Blood Pressure 129/74 127/77 O2 Sat by Pulse 100 97 Oximetry Medical Decision Making - Medical Decision Making The patient was seen and evaluated, history was obtained from the patient and review of medical record. Patient presenting for anxiety and headache has taken 1.5 mg over the past 10 hours due to her anxiety. Patient with multiple social stressors including recent in the family, threatened of losing her job due to missed time due to her depression and anxiety. Patient has a very close relationship with a therapist and has recently been started on Lexapro she has been advised by her therapist that she could have emotional lability and anxiety in the first few weeks. She has been taking her Ativan as prescribed. Patient feels overwhelmed by [place] today. No acute complaints. I advised the patient we'll treat her headache with Reglan and Benadryl she is agreeable to this. He discussed relaxation techniques as well as stretching techniques for her neck to prevent headaches. I discussed patient care with her for approximately 20-30 minutes the patient reports she felt very reassured and comfortable at this time. At this time I don't feel any further workup is warranted and the patient is stable for discharge home. Sensation is agreeable to this. Disposition Clinical Impression: Headache Disposition: HOME SELF-CARE Instructions: Generalized Anxiety Disorder (ED) Is patient prescribed a controlled substance at d/c from ED?: No Referrals: Leelee Messina MD [Primary Care Provider] - 1-2 days Mary Ram MD [STAFF PHYSICIAN] - 1-2 days
[2018-08-23 01:20] VITALS: BP 127/77; PULSE 67; TEMP 98.6
== END 2018-08-23 01:18 | disposition home or self-care (01) ==
LOC: EC 00:12
DX: R51 Headache (principal); Z63.4 Disappearance and death of family member; F43.9 Reaction to severe stress, unspecified; F41.9 Anxiety disorder, unspecified; F32.9 Major depressive disorder, single episode, unspecified; F17.200 Nicotine dependence, unspecified, uncomplicated; Z79.899 Other long term (current) drug therapy
CPT/HCPCS: 99283; S0183

== ENCOUNTER 2018-08-25 21:46 | Emergency (ER) | payer BC ==
[2018-08-25 23:58] VITALS: RESP 18
[2018-08-26] MEDS ORDERED: KETOROLAC 60 MG/2 ML VIAL IM STA (00:09)
[2018-08-26] MEDS ORDERED: diphenhydrAMINE 25 MG CAP PO STA (00:09)
[2018-08-26] MEDS ORDERED: METOCLOPRAMIDE 5 MG TAB PO STA (00:09)
--- NOTE | 2018-08-26 00:13 | ED ---
General Adult HPI - General Chief complaint: Headache Stated complaint: Headache/Skin feels like its burning Time Seen by Provider: 08/25/18 23:54 Source: patient, RN notes reviewed Mode of arrival: ambulatory Limitations: no limitations - History of Present Illness Initial comments: Patient's a 28-year-old female presenting to the emergency room today with a chief complaint of a headache. Patient states that she's been expressing headaches off and on over the last few months. She states that she was seen here recently for this headache and advised follow-up with neurology. She states that she began having a burning sensation coming from the right side today. She states she does feel some neck stiffness as well. [place] with movements of the head. Patient denies any injury or trauma. Patient denies any other symptoms or complaints. States his symptoms are consistent with the headaches that she's been experiencing. She denies any medicines new. She does admit that she's had a CAT scan in the past. She is trying follow-up neurology. She states she was recently diagnosed with anxiety. Has been seen her family doctor was started on Lexapro and Ativan. Patient denies any other complaints or symptoms. States not taken anything for the headache. Patient denies any recent fever, chills, shortness of breath, chest pain, back pain, abdominal pain, nausea or vomiting, visual changes, or any other complaints. - Related Data Home Medications Medication Instructions Recorded Confirmed Escitalopram [Lexapro] 10 mg PO HS 07/19/18 08/20/18 LORazepam [Ativan] 0.5 mg PO DAILY PRN 08/07/18 08/20/18 Previous Rx's Medication Instructions Recorded Cyclobenzaprine [Flexeril] 10 mg PO TID #10 tab 08/26/18 Ibuprofen [Motrin] 600 mg PO Q6HR PRN #40 day 08/26/18 Allergies Allergy/AdvReac Type Severity Reaction Status Date / Time No Known Allergies Allergy Verified 08/25/18 22:17 Review of Systems ROS Statement: Those systems with pertinent positive or pertinent negative responses have been documented in the HPI. ROS Other: All systems not noted in ROS Statement are negative. Past Medical History Past Medical History: Thyroid Disorder History of Any Multi-Drug Resistant Organisms: None Reported Past Surgical History: No Surgical Hx Reported Past Psychological History: Anxiety, Panic Disorder Smoking Status: Current every day smoker Past Alcohol Use History: None Reported Past Drug Use History: None Reported General Exam - General Exam Comments Initial Comments: General: The patient is awake and alert, in no distress, and does not appear acutely ill. Eye: Pupils are equal, round and reactive to light, extra-ocular movements are intact. No nystagmus. There is normal conjunctiva bilaterally. No signs of icterus. Ears, nose, mouth and throat: There are moist mucous membranes and no oral lesions. Neck: The neck is supple, there is no tenderness or JVD. Cardiovascular: There is a regular rate and rhythm. No murmur, rub or gallop is appreciated. Respiratory: Lungs are clear to auscultation, respirations are non-labored, breath sounds are equal. No wheezes, stridor, rales, or rhonchi. Gastrointestinal: Musculoskeletal: Normal ROM. No tenderness midline cervical spine. Normal appearance. Full range of motion. Patient does have tenderness with rotation to the left and right. Tender in the trapezius areas bilaterally. Strength 5/ 5. Sensation intact. Pulses equal bilaterally 2+. Neurological: A&O x 3. CN II-XII intact, There are no obvious motor or sensory deficits. Coordination appears grossly intact. Speech is normal. Skin: Skin is warm and dry and no rashes or lesions are noted. Psychiatric: Cooperative, appropriate mood & affect, normal judgment. Limitations: no limitations Course Vital Signs 08/25/18 08/25/18 22:14 23:57 Temperature 99.0 F 99.5 F Pulse Rate 78 77 Respiratory 16 18 Rate Blood Pressure 109/74 106/72 O2 Sat by Pulse 99 98 Oximetry Medical Decision Making - Medical Decision Making 28-year-old female presents to the emergency room had multiple emergency room visits in the last month. Patient does have some neck pain and examined this filled musculoskeletal. Discussed about anti-inflammatories and using muscle relaxer. Advised that muscle laxer may make her drowsy. Patient will be given a short prescription of Flexeril to go home with try. She is agreeable to Reglan Benadryl here in the emergency room as she states this did help her the other day with this headache. Patient was also given portal 30 mg IM. Patient is advised to continue try to follow-up family physician and also neurology. Advised return for any other concerns. Disposition Clinical Impression: Headache Disposition: HOME SELF-CARE Condition: Good Instructions: Acute Headache (ED) Additional Instructions: Please use medication as discussed. Please follow-up with neurology/family doctor in the next 2 days of symptoms have not improved. Please return to emergency room if the symptoms increase or worsen or for any other concerns. Prescriptions: Cyclobenzaprine [Flexeril] 10 mg PO TID #10 tab Ibuprofen [Motrin] 600 mg PO Q6HR PRN #40 day PRN Reason: Pain Is patient prescribed a controlled substance at d/c from ED?: No Referrals: Leelee Messina MD [Primary Care Provider] - 1-2 days Time of Disposition: 00:12
[2018-08-26 00:45] VITALS: BP 137/82; PULSE 76; TEMP 99.4
== END 2018-08-26 00:43 | disposition home or self-care (01) ==
LOC: EC 21:46
DX: R51 Headache (principal); M54.5 Low back pain; R20.8 Other disturbances of skin sensation; F41.9 Anxiety disorder, unspecified; F17.200 Nicotine dependence, unspecified, uncomplicated; Z79.899 Other long term (current) drug therapy
CPT/HCPCS: 99283; 96372; J1885

== ENCOUNTER 2018-09-06 19:21 | Emergency (ER) | payer BC ==
[2018-09-06 19:30] VITALS: RESP 18
--- NOTE | 2018-09-06 20:24 | ED ---
Anxiety HPI - General Chief Complaint: Anxiety Stated Complaint: Anxiety Time Seen by Provider: 09/06/18 19:42 Source: patient, EMS Mode of arrival: EMS - History of Present Illness Initial Comments: 28-year-old female past medical history of anxiety and panic attacks presenting today for anxiety palpitations. Patient states that she was at work when she takes periods palpitations, she states she felt this to anxiety her that her heart began racing. Patient states she took .5mg of Ativan. Patient states she then called EMS and presents emergency department for evaluation. Patient is coming by her boyfriend. Patient states she has [place] of impeding , she states she feels she has increased anxiety. Patient denies shortness of breath, dyspnea on exertion, lower extremity edema, recent travel, fever, chills , history of sudden in family, syncope, presyncope,, history of ACS less than age warty. Patient states she had has had occasional chest pain, she states this increases with her anxiety is very typical of her panic attacks. Remainder bar was negative. Upon arrival patient appears well vital signs within normal limits. EKG was obtained. Patient denies any recent fever, chills , shortness of breath, back pain, abdominal pain, nausea or vomiting, numbness or tingling, dysuria or hematuria, constipation or diarrhea, headaches or visual changes, suicidal ideations or homicidal ideation or any other complaints. - Related Data Home Medications: Home Medications Medication Instructions Recorded Confirmed Escitalopram [Lexapro] 5 mg PO HS 07/19/18 09/06/18 LORazepam [Ativan] 1 mg PO HS 09/06/18 09/06/18 Allergies/Adverse Reactions: Allergies Allergy/AdvReac Type Severity Reaction Status Date / Time No Known Allergies Allergy Verified 09/06/18 20:39 Review of Systems ROS Statement: Those systems with pertinent positive or pertinent negative responses have been documented in the HPI. ROS Other: All systems not noted in ROS Statement are negative. Past Medical History Past Medical History: Thyroid Disorder History of Any Multi-Drug Resistant Organisms: None Reported Past Surgical History: No Surgical Hx Reported Past Psychological History: Anxiety, Panic Disorder Smoking Status: Current every day smoker Past Alcohol Use History: None Reported Past Drug Use History: None Reported General Exam - General Exam Comments Initial Comments: General: The patient is awake and alert, in no distress, and does not appear acutely ill. Eye: Pupils are equal, round and reactive to light, extra-ocular movements are intact. No nystagmus. There is normal conjunctiva bilaterally. No signs of icterus. Ears, nose, mouth and throat: There are moist mucous membranes and no oral lesions. Neck: The neck is supple, there is no tenderness or JVD. Cardiovascular: There is a regular rate and rhythm. No murmur, rub or gallop is appreciated. Respiratory: Lungs are clear to auscultation, respirations are non-labored, breath sounds are equal. No wheezes, stridor, rales, or rhonchi. Gastrointestinal: Soft, non-distended, non-tender abdomen without masses or organomegaly noted. There is no rebound or guarding present. No CVA tenderness. Bowel sounds are unremarkable. Musculoskeletal: Normal ROM, no tenderness. Strength 5/5. Sensation intact. Radial pulses equal bilaterally 2+. Neurological: A&O x 3. CN II-XII intact, There are no obvious motor or sensory deficits. Coordination appears grossly intact. Speech is normal. Skin: Skin is warm and dry and no rashes or lesions are noted. No lower extremity edema Psychiatric: Cooperative, appropriate mood & affect, normal judgment. Limitations: no limitations Course Vital Signs 09/06/18 09/06/18 19:26 22:11 Temperature 98.0 F 98.2 F Pulse Rate 93 79 Respiratory 18 18 Rate Blood Pressure 105/78 103/79 O2 Sat by Pulse 100 100 Oximetry Medical Decision Making - Medical Decision Making Well-appearing 28-year-old female. EKG obtained revealing P waves inversion all leads. We consult to Dr. Ba song writer gourmet coffee attendant. He requested copy of EKG however he states he feels this is due to patient's body habitus. Patient is thin. Dr. aB return phone call after receiving facts, he states he is not concerned with findings. He states this is consistent with placement of SA node in the normal anatomy of this patient's heart. Dr. Ba 's broke with attending Dr. Greer. At this time given patient's symptoms typical of anxiety attack I feel patient is stable for discharge. Patient does have a follow-up appointment with cardiology on the . I did recommend follow-up with primary care in the next 24-48 hours to obtain a Holter monitor, this man patient experiences palpitations she is able to record the event. Otherwise no concerning symptoms and physical exam or risk factors concerning for acute coronary syndrome. Patient will be discharged, patient is agreeable discharge. Denies questions. Appears happy with plan. - EKG Data EKG Comments: A 12-lead EKG was performed and shows the following: Rate is 93bpm, and rhythm is normal sinus. There are normal QRS complexes and normal R-wave progression. ST segments have no elevation or depression, and ID segments appear normal. P waves inverted. EKG evaluated by myself and Dr. Greer, as well as Dr. Ba gourmet coffee attendant. Disposition Clinical Impression: Anxiety, Heart palpitations Disposition: HOME SELF-CARE Condition: Good Instructions: Generalized Anxiety Disorder (ED) Additional Instructions: Please use home medication as discussed. Please follow-up with family doctor in the next 2 days, I recommend holter monitor. Please keep cardiology appointment scheduled for 09/19/18. Please return to emergency room if the symptoms increase or worsen or for any other concerns, as discussed. Is patient prescribed a controlled substance at d/c from ED?: No Referrals: Leelee Messina MD [Primary Care Provider] - 1-2 days Time of Disposition: 21:46
[2018-09-06] MEDS ORDERED: LORazepam 1 MG TAB PO STA (21:19)
[2018-09-06 22:16] VITALS: BP 103/79; PULSE 79; TEMP 98.2
== END 2018-09-06 22:12 | disposition home or self-care (01) ==
LOC: EC 19:21
DX: F41.9 Anxiety disorder, unspecified (principal); R00.2 Palpitations; F17.200 Nicotine dependence, unspecified, uncomplicated; Z79.899 Other long term (current) drug therapy
CPT/HCPCS: 93005; 99283

== ENCOUNTER 2018-10-05 22:06 | Emergency (ER) | payer BC ==
--- NOTE | 2018-10-05 22:59 | XR ---
EXAM: XR Chest, 2 Views CLINICAL HISTORY: ITS.REASON XR Reason: Cough/pain TECHNIQUE: Frontal and lateral views of the chest. COMPARISON: 07/25/18 FINDINGS: Lungs: Unremarkable. No consolidation. Pleural space: Unremarkable. No pneumothorax. Heart: Unremarkable. No cardiomegaly. Mediastinum: Unremarkable. Bones/joints: Unremarkable. IMPRESSION: Normal chest x-rays.
[2018-10-05 23:00] LABS: Appearance,Urine Clear (Clear); Bilirubin,Urine Negative (Negative); Blood,Urine Moderate (Negative); Color,Urine Yellow; Glucose,Urine (UA) Negative (Negative); Ketones,Urine Negative (Negative); Leukocyte Esterase,Urine Negative (Negative); Mucus,Urine Occasional /hpf; Nitrite,Urine Negative (Negative); Protein,Urine Negative (Negative); RBC,Urine 1 /hpf (0-5); Specific Gravity,Urine 1.014 (1.001-1.035); Squamous Epithelial Cell,Urine 2 /hpf (0-4); Urobilinogen,Urine <2.0 mg/dL (<2.0); WBC,Urine 1 /hpf (0-5)
--- NOTE | 2018-10-05 23:13 | ED ---
General Adult HPI - General Chief complaint: Recheck/Abnormal Lab/Rx Stated complaint: Post panic attack RYENALDO, abd and back pain Time Seen by Provider: 10/05/18 22:12 Source: patient, RN notes reviewed Mode of arrival: ambulatory Limitations: no limitations - History of Present Illness Initial comments: 28-year-old female presented emergency from chief complaint of panic attack. Patient states she had severe pain [place] morning this afternoon. Patient states that she still feels shaky from it. Patient has multiple complaints. Patient does admit that symptoms are improving. Patient states that she has been recently switched from Lexapro to Paxil. Patient is increase her Paxil currently and was told this may happen. Patient also has been taking Ativan 0.5 mg twice daily. Patient denies suicidal or homicidal ideation. Patient states she does feel shaky, chest discomfort. Patient is also complaining of cough that is productive with green phlegm. Patient denies any abdominal pain she does notice some urinary frequency no dysuria. - Related Data Home Medications Medication Instructions Recorded Confirmed Calcium Carbonate [Tums] 500 mg PO BID PRN 10/05/18 10/05/18 L.acidoph,Paracasei, B.lactis 1 cap PO DAILY 10/05/18 10/05/18 [Probiotic] LORazepam [Ativan] 0.5 mg PO BID 10/05/18 10/05/18 PARoxetine [Paxil] 10 mg PO HS 10/05/18 10/05/18 Pedi Multivit No.25/Folic Acid 2 tab PO DAILY 10/05/18 10/05/18 [Flintstones Multivit Chew Tab] Allergies Allergy/AdvReac Type Severity Reaction Status Date / Time No Known Allergies Allergy Verified 10/05/18 22:39 Review of Systems ROS Statement: Those systems with pertinent positive or pertinent negative responses have been documented in the HPI. ROS Other: All systems not noted in ROS Statement are negative. Past Medical History Past Medical History: Thyroid Disorder History of Any Multi-Drug Resistant Organisms: None Reported Past Surgical History: No Surgical Hx Reported Past Psychological History: Anxiety, Depression, Panic Disorder Smoking Status: Current every day smoker Past Alcohol Use History: None Reported Past Drug Use History: None Reported General Exam Limitations: no limitations General appearance: alert, in no apparent distress Head exam: Present: atraumatic, normocephalic, normal inspection Eye exam: Present: normal appearance, PERRL, EOMI. Absent: scleral icterus, conjunctival injection, periorbital swelling ENT exam: Present: normal exam, mucous membranes moist Neck exam: Present: normal inspection, full ROM. Absent: tenderness, meningismus, lymphadenopathy Respiratory exam: Present: normal lung sounds bilaterally. Absent: respiratory distress, wheezes, rales, rhonchi, stridor Cardiovascular Exam: Present: regular rate, normal rhythm, normal heart sounds. Absent: systolic murmur, diastolic murmur, rubs, gallop, clicks GI/Abdominal exam: Present: soft, normal bowel sounds. Absent: distended, tenderness, guarding, rebound, rigid Neurological exam: Present: alert, oriented X3, CN II-XII intact Psychiatric exam: Present: anxious Skin exam: Present: warm, dry, intact, normal color. Absent: rash Course Vital Signs 10/05/18 10/05/18 22:08 22:21 Temperature 98.9 F Pulse Rate 69 Pulse Rate [ 75 [employer] ] Respiratory 18 Rate Blood Pressure 112/77 O2 Sat by Pulse 100 Oximetry EKG Findings - EKG Comments: EKG Findings:: EKG performed at 22:33 sinus rhythm with rate of 68 NM 124 QRS 84 QT/QTC 380/404 Medical Decision Making - Medical Decision Making 28-year-old female presented for anxiety, panic attack. Patient had multiple complaints after her panic attack. Symptoms are resolving. Patient was offered admission declined. Patient we discharged with close follow-up with PCP return parameters were discussed. - Lab Data Lab Results 10/05/18 10/05/18 Range/Units 22:50 22:50 Urine Color Yellow Urine Appearance Clear (Clear) Urine pH 6.0 (5.0-8.0) Ur Specific [place] 1.014 (1.001-1.035) Urine Protein Negative (Negative) Urine Glucose (UA) Negative (Negative) Urine Ketones Negative (Negative) Urine Blood Moderate H (Negative) Urine Nitrite Negative (Negative) Urine Bilirubin Negative (Negative) Urine Urobilinogen <2.0 (<2.0) mg/dL Ur Leukocyte Esterase Negative (Negative) Urine RBC 1 (0-5) /hpf Urine WBC 1 (0-5) /hpf Ur Squamous Epith Cells 2 (0-4) /hpf Urine Mucus Occasional H (None) /hpf Urine HCG, Qual Not Detected (Not Detectd) Disposition Clinical Impression: Anxiety, Panic attacks Disposition: HOME SELF-CARE Condition: Stable Instructions (If sedation given, give patient instructions): Panic Attack (ED) Additional Instructions: Please return to the Emergency Department if symptoms worsen or any other concerns. Is patient prescribed a controlled substance at d/c from ED?: No Referrals: Leelee Messina MD [Primary Care Provider] - 1-2 days Time of Disposition: 23:13
[2018-10-05 23:24] VITALS: BP 102/64; PULSE 68; RESP 20; TEMP 98.7
== END 2018-10-05 23:29 | disposition home or self-care (01) ==
LOC: EC 22:06
DX: F41.0 Panic disorder [episodic paroxysmal anxiety] (principal); R07.89 Other chest pain; R05 Cough; F32.9 Major depressive disorder, single episode, unspecified; F17.200 Nicotine dependence, unspecified, uncomplicated; Z79.899 Other long term (current) drug therapy; Z53.29 Procedure and treatment not carried out because of patient's decision for other reasons
CPT/HCPCS: 71046; 81001; 81025; 93005; 99285

== ENCOUNTER 2018-10-08 22:32 | Emergency (ER) | payer BC ==
[2018-10-09 00:26] LABS: Appearance,Urine Clear (Clear); Bacteria,Urine Rare /hpf; Bilirubin,Urine Negative (Negative); Blood,Urine Small (Negative); Color,Urine Light Yellow; Glucose,Urine (UA) Negative (Negative); Ketones,Urine Negative (Negative); Leukocyte Esterase,Urine Negative (Negative); Mucus,Urine Rare /hpf; Nitrite,Urine Negative (Negative); Protein,Urine Negative (Negative); RBC,Urine 1 /hpf (0-5); Specific Gravity,Urine 1.004 (1.001-1.035); Squamous Epithelial Cell,Urine 1 /hpf (0-4); Urobilinogen,Urine <2.0 mg/dL (<2.0); WBC,Urine 1 /hpf (0-5)
[2018-10-09 00:30] LABS: Basophils % (A) 1 %; Eosinophils # (A) 0.2 k/uL (0-0.7); Eosinophils % (A) 2 %; HCT 39.3 % (34.0-46.0); HGB 12.9 gm/dL (11.4-16.0); Lymphocytes # (A) 2.5 k/uL (1.0-4.8); Lymphocytes % (A) 31 %; MCH 28.4 pg (25.0-35.0); MCHC 32.8 g/dL (31.0-37.0); MCV 86.5 fL (80.0-100.0); Mean Platelet Volume 7.3; Monocytes # (A) 0.4 k/uL (0-1.0); Monocytes % (A) 5 %; Neutrophils # (A) 4.8 k/uL (1.3-7.7); Neutrophils % (A) 60 %; Platelet Count 296 k/uL (150-450); RBC 4.54 m/uL (3.80-5.40); RDW 13.6 % (11.5-15.5)
[2018-10-09 00:43] LABS: ALT 22 U/L (9-52); AST 19 U/L (14-36); Albumin 4.2 g/dL (3.5-5.0); Alkaline Phosphatase 43 U/L (38-126); Amylase 45 U/L (30-110); Anion Gap 8 mmol/L; Blood Urea Nitrogen 9 mg/dL (7-17); Calcium 9.7 mg/dL (8.4-10.2); Carbon Dioxide 26 mmol/L (22-30); Chloride 107 mmol/L (98-107); Glucose 96 mg/dL (74-99); Lipase 154 U/L (23-300); Potassium 3.9 mmol/L (3.5-5.1); Sodium 141 mmol/L (137-145); Total Bilirubin 0.4 mg/dL (0.2-1.3); Total Protein 6.8 g/dL (6.3-8.2)
--- NOTE | 2018-10-09 00:53 | ED ---
General Adult HPI - General Chief complaint: Abdominal Pain Stated complaint: Cough Time Seen by Provider: 10/08/18 22:52 Source: patient Mode of arrival: ambulatory Limitations: no limitations - History of Present Illness Initial comments: This patient is 28-year-old woman who presents to be evaluated for which she is concerned may be kidney infection. She states she is having a feeling like she is chilled. She is having pain in the right lower back area. She states she had this once before and it was a kidney infection. She has not noted change in urine. She has not deftly had a fever. Denies other symptoms. Onset/Timin -: days(s) Location: right (Like) Radiation: non-radiation Quality: aching Consistency: constant Improves with: none Worsens with: none Associated Symptoms: fever/chills (Chills) - Related Data Home Medications Medication Instructions Recorded Confirmed PARoxetine [Paxil] 10 mg PO HS 10/05/18 10/16/18 L.acidoph,Paracasei, B.lactis 1 cap PO DAILY 10/08/18 10/16/18 [Probiotic] LORazepam [Ativan] 0.5 mg PO BID 10/08/18 10/16/18 Pedi Multivit No.25/Folic Acid 600 mcg PO DAILY 10/08/18 10/16/18 [Flintstones Multivit Chew Tab] Allergies Allergy/AdvReac Type Severity Reaction Status Date / Time No Known Allergies Allergy Verified 10/16/18 14:02 Review of Systems ROS Statement: Those systems with pertinent positive or pertinent negative responses have been documented in the HPI. ROS Other: All systems not noted in ROS Statement are negative. Constitutional: Reports: chills Respiratory: Denies: cough, dyspnea Cardiovascular: Denies: chest pain, palpitations Gastrointestinal: Reports: abdominal pain. Denies: nausea, vomiting, diarrhea ( Flank pain) Genitourinary: Denies: dysuria, hematuria Musculoskeletal: Denies: back pain Skin: Denies: rash Neurological: Denies: headache, weakness, numbness Past Medical History Past Medical History: Thyroid Disorder History of Any Multi-Drug Resistant Organisms: None Reported Past Surgical History: No Surgical Hx Reported Past Psychological History: Anxiety, Depression, Panic Disorder Smoking Status: Current every day smoker Past Alcohol Use History: None Reported Past Drug Use History: None Reported General Exam Limitations: no limitations General appearance: alert, in no apparent distress Head exam: Present: atraumatic, normocephalic Eye exam: Present: normal appearance. Absent: scleral icterus, conjunctival injection Respiratory exam: Present: normal lung sounds bilaterally. Absent: respiratory distress, wheezes, rales, rhonchi, stridor Cardiovascular Exam: Present: regular rate, normal rhythm, normal heart sounds. Absent: systolic murmur, diastolic murmur, rubs, gallop GI/Abdominal exam: Present: soft. Absent: distended, tenderness, guarding, rebound, mass Extremities exam: Present: normal inspection, normal capillary refill. Absent: pedal edema, calf tenderness Back exam: Present: normal inspection. Absent: CVA tenderness (R), CVA tenderness (L) Skin exam: Present: warm, dry, intact, normal color. Absent: rash Course Vital Signs 10/08/18 10/09/18 22:45 00:50 Temperature 99 F 98.5 F Pulse Rate 69 65 Respiratory 20 15 Rate Blood Pressure 109/72 106/64 O2 Sat by Pulse 98 96 Oximetry Medical Decision Making - Medical Decision Making Patient is 28-year-old woman with a feeling of chills and flank pain. Her workup here is negative. We did discuss appropriate follow-up as well as return parameters. Will have patient follow-up with the dry cans back tender. - Lab Data Result diagrams: 10/08/18 23:45 10/08/18 23:45 Lab Results 10/08/18 10/08/18 10/08/18 Range/Units 23:45 23:45 23:45 WBC 8.0 (3.8-10.6) k/uL RBC 4.54 (3.80-5.40) m/uL Hgb 12.9 (11.4-16.0) gm/dL Hct 39.3 (34.0-46.0) % MCV 86.5 (80.0-100.0) fL MCH 28.4 (25.0-35.0) pg MCHC 32.8 (31.0-37.0) g/dL RDW 13.6 (11.5-15.5) % Plt Count 296 (150-450) k/uL Neutrophils % 60 % Lymphocytes % 31 % Monocytes % 5 % Eosinophils % 2 % Basophils % 1 % Neutrophils # 4.8 (1.3-7.7) k/uL Lymphocytes # 2.5 (1.0-4.8) k/uL Monocytes # 0.4 (0-1.0) k/uL Eosinophils # 0.2 (0-0.7) k/uL Basophils # 0.0 (0-0.2) k/uL Sodium 141 (137-145) mmol/L Potassium 3.9 (3.5-5.1) mmol/L Chloride 107 (98-107) mmol/L Carbon Dioxide 26 (22-30) mmol/L Anion Gap 8 mmol/L BUN 9 (7-17) mg/dL Creatinine 0.58 (0.52-1.04) mg/dL Est GFR (CKD-EPI)AfAm >90 (>60 ml/min/1.73 sqM) Est GFR (CKD-EPI)NonAf >90 (>60 ml/min/1.73 sqM) Glucose 96 (74-99) mg/dL Calcium 9.7 (8.4-10.2) mg/dL Total Bilirubin 0.4 (0.2-1.3) mg/dL AST 19 (14-36) U/L ALT 22 (9-52) U/L Alkaline Phosphatase 43 (38-126) U/L Total Protein 6.8 (6.3-8.2) g/dL Albumin 4.2 (3.5-5.0) g/dL Amylase 45 (30-110) U/L Lipase 154 (23-300) U/L Urine Color Urine Appearance (Clear) Urine pH (5.0-8.0) Ur Specific [place] (1.001-1.035) Urine Protein (Negative) Urine Glucose (UA) (Negative) Urine Ketones (Negative) Urine Blood (Negative) Urine Nitrite (Negative) Urine Bilirubin (Negative) Urine Urobilinogen (<2.0) mg/dL Ur Leukocyte Esterase (Negative) Urine RBC (0-5) /hpf Urine WBC (0-5) /hpf Ur Squamous Epith Cells (0-4) /hpf Urine Bacteria (None) /hpf Urine Mucus (None) /hpf Urine HCG, Qual Not Detected (Not Detectd) 10/08/18 Range/Units 23:45 WBC (3.8-10.6) k/uL RBC (3.80-5.40) m/uL Hgb (11.4-16.0) gm/dL Hct (34.0-46.0) % MCV (80.0-100.0) fL MCH (25.0-35.0) pg MCHC (31.0-37.0) g/dL RDW (11.5-15.5) % Plt Count (150-450) k/uL Neutrophils % % Lymphocytes % % Monocytes % % Eosinophils % % Basophils % % Neutrophils # (1.3-7.7) k/uL Lymphocytes # (1.0-4.8) k/uL Monocytes # (0-1.0) k/uL Eosinophils # (0-0.7) k/uL Basophils # (0-0.2) k/uL Sodium (137-145) mmol/L Potassium (3.5-5.1) mmol/L Chloride (98-107) mmol/L Carbon Dioxide (22-30) mmol/L Anion Gap mmol/L BUN (7-17) mg/dL Creatinine (0.52-1.04) mg/dL Est GFR (CKD-EPI)AfAm (>60 ml/min/1.73 sqM) Est GFR (CKD-EPI)NonAf (>60 ml/min/1.73 sqM) Glucose (74-99) mg/dL Calcium (8.4-10.2) mg/dL Total Bilirubin (0.2-1.3) mg/dL AST (14-36) U/L ALT (9-52) U/L Alkaline Phosphatase (38-126) U/L Total Protein (6.3-8.2) g/dL Albumin (3.5-5.0) g/dL Amylase (30-110) U/L Lipase (23-300) U/L Urine Color Light Yellow Urine Appearance Clear (Clear) Urine pH 6.0 (5.0-8.0) Ur Specific [place] 1.004 (1.001-1.035) Urine Protein Negative (Negative) Urine Glucose (UA) Negative (Negative) Urine Ketones Negative (Negative) Urine Blood Small H (Negative) Urine Nitrite Negative (Negative) Urine Bilirubin Negative (Negative) Urine Urobilinogen <2.0 (<2.0) mg/dL Ur Leukocyte Esterase Negative (Negative) Urine RBC 1 (0-5) /hpf Urine WBC 1 (0-5) /hpf Ur Squamous Epith Cells 1 (0-4) /hpf Urine Bacteria Rare H (None) /hpf Urine Mucus Rare H (None) /hpf Urine HCG, Qual (Not Detectd) Disposition Clinical Impression: Myalgia and myositis Disposition: HOME SELF-CARE Condition: Good Instructions (If sedation given, give patient instructions): Musculoskeletal Pain (ED) Is patient prescribed a controlled substance at d/c from ED?: No Referrals: Leelee Messina MD [Primary Care Provider] - 1-2 days Seema Leigh MD [STAFF PHYSICIAN] - 1-2 days
[2018-10-09 00:56] VITALS: BP 106/64; PULSE 65; RESP 15; TEMP 98.5
== END 2018-10-09 01:10 | disposition home or self-care (01) ==
LOC: EC 22:32
DX: M60.9 Myositis, unspecified (principal); F41.0 Panic disorder [episodic paroxysmal anxiety]; F32.9 Major depressive disorder, single episode, unspecified; F17.200 Nicotine dependence, unspecified, uncomplicated; Z79.899 Other long term (current) drug therapy
CPT/HCPCS: 36415; 80053; 81001; 81025; 82150; 83690; 85025; 99284

== ENCOUNTER 2018-10-16 13:29 | Emergency (ER) | payer BC ==
[2018-10-16 13:44] VITALS: RESP 18; TEMP 98.1
--- NOTE | 2018-10-16 14:42 | ED ---
General Adult HPI - General Chief complaint: Chest Pain Stated complaint: Chest pain Time Seen by Provider: 10/16/18 13:52 Source: patient, RN notes reviewed Mode of arrival: ambulatory Limitations: no limitations - History of Present Illness Initial comments: 28-year-old female presents emergency Department with chief complaint of anxiety. Patient has been struggling that he for a while has been on and off symptoms. Patient states she is currently on Paxil which has been helping. Patient states that she had different symptoms this morning. Patient states she became very anxious morning, nauseated following is hard to breathe her heart was racing. Symptoms have resolved this time. Patient states that she is on Effexor nothing else was going on. Patient denies any focal weakness denies any blurred vision no headache at this time. Patient has appointment with her psychiatrist - Related Data Home Medications Medication Instructions Recorded Confirmed PARoxetine [Paxil] 10 mg PO HS 10/05/18 10/16/18 L.acidoph,Paracasei, B.lactis 1 cap PO DAILY 10/08/18 10/16/18 [Probiotic] LORazepam [Ativan] 0.5 mg PO BID 10/08/18 10/16/18 Pedi Multivit No.25/Folic Acid 600 mcg PO DAILY 10/08/18 10/16/18 [Flintstones Multivit Chew Tab] Allergies Allergy/AdvReac Type Severity Reaction Status Date / Time No Known Allergies Allergy Verified 10/16/18 14:02 Review of Systems ROS Statement: Those systems with pertinent positive or pertinent negative responses have been documented in the HPI. ROS Other: All systems not noted in ROS Statement are negative. Past Medical History Past Medical History: Thyroid Disorder History of Any Multi-Drug Resistant Organisms: None Reported Past Surgical History: No Surgical Hx Reported Past Psychological History: Anxiety, Depression, Panic Disorder Smoking Status: Current every day smoker Past Alcohol Use History: None Reported Past Drug Use History: None Reported General Exam Limitations: no limitations General appearance: alert, in no apparent distress Head exam: Present: atraumatic, normocephalic, normal inspection Eye exam: Present: normal appearance, PERRL, EOMI. Absent: scleral icterus, conjunctival injection, periorbital swelling ENT exam: Present: normal exam, normal oropharynx, mucous membranes moist Neck exam: Present: normal inspection. Absent: tenderness, meningismus, lymphadenopathy Respiratory exam: Present: normal lung sounds bilaterally. Absent: respiratory distress, wheezes, rales, rhonchi, stridor Cardiovascular Exam: Present: regular rate, normal rhythm, normal heart sounds. Absent: systolic murmur, diastolic murmur, rubs, gallop, clicks GI/Abdominal exam: Present: soft, normal bowel sounds. Absent: distended, tenderness, guarding, rebound, rigid Extremities exam: Present: normal inspection, full ROM, normal capillary refill. Absent: tenderness, pedal edema, joint swelling, calf tenderness Back exam: Present: normal inspection Neurological exam: Present: alert, oriented X3, CN II-XII intact Psychiatric exam: Present: normal affect, normal mood Skin exam: Present: warm, dry, intact, normal color. Absent: rash Course Vital Signs 10/16/18 13:41 Temperature 98.1 F Pulse Rate 80 Respiratory 18 Rate Blood Pressure 119/81 O2 Sat by Pulse 99 Oximetry EKG Findings - EKG Comments: EKG Findings:: EKG performed at 13:51 normal sinus rhythm with rate of 65, CA 118 QRS 84 QT/QTC 374/388 Medical Decision Making - Medical Decision Making 28-year-old female presented for anxiety. Patient has severe anxiety, symptoms have resolved. Patient will be discharged with follow-up with her psychiatrist. Disposition Clinical Impression: Panic attacks, Anxiety Disposition: HOME SELF-CARE Condition: Stable Instructions (If sedation given, give patient instructions): Generalized Anxiety Disorder (ED) Additional Instructions: Please return to the Emergency Department if symptoms worsen or any other concerns. Is patient prescribed a controlled substance at d/c from ED?: No Referrals: Leelee Messina MD [Primary Care Provider] - 1-2 days Time of Disposition: 14:42
[2018-10-16 14:50] VITALS: BP 145/65; PULSE 75
== END 2018-10-16 14:49 | disposition home or self-care (01) ==
LOC: EC 13:29
DX: F41.0 Panic disorder [episodic paroxysmal anxiety] (principal); F32.9 Major depressive disorder, single episode, unspecified; F17.200 Nicotine dependence, unspecified, uncomplicated; Z79.899 Other long term (current) drug therapy
CPT/HCPCS: 93005; 99284

== ENCOUNTER 2018-11-12 16:12 | Emergency (ER) | payer BC, OTHER ==
[2018-11-12 16:26] VITALS: BP 107/71; PULSE 84; RESP 16; TEMP 98.3
[2018-11-12] MEDS ORDERED: SODIUM CHLORIDE 0.9% 1,000 ML IV STA (17:29)
[2018-11-12] MEDS ORDERED: MECLIZINE 12.5 MG TAB PO STA (17:29)
--- NOTE | 2018-11-12 18:36 | ED ---
Dizziness HPI - General Chief Complaint: Dizziness Stated Complaint: Dizzy, Light headed Time Seen by Provider: 11/12/18 16:57 Source: patient, RN notes reviewed, old records reviewed Mode of arrival: ambulatory Limitations: no limitations - History of Present Illness Initial Comments: 28-year-old female presents return today for complaints of pain in her left arm tingling sensation and dizziness. Patient is well-known to emergency department for complaints of anxiety. Patient reports she took her blood pressure was elevated. Patient denies any chest pain at this time. She otherwise appears clinically well. No nausea or vomiting. - Related Data Home Medications Medication Instructions Recorded Confirmed PARoxetine [Paxil] 10 mg PO HS 10/05/18 10/16/18 L.acidoph,Paracasei, B.lactis 1 cap PO DAILY 10/08/18 10/16/18 [Probiotic] LORazepam [Ativan] 0.5 mg PO BID 10/08/18 10/16/18 Pedi Multivit No.25/Folic Acid 600 mcg PO DAILY 10/08/18 10/16/18 [Flintstones Multivit Chew Tab] Allergies Allergy/AdvReac Type Severity Reaction Status Date / Time No Known Allergies Allergy Verified 11/12/18 16:26 Review of Systems ROS Statement: Those systems with pertinent positive or pertinent negative responses have been documented in the HPI. ROS Other: All systems not noted in ROS Statement are negative. Past Medical History Past Medical History: Thyroid Disorder History of Any Multi-Drug Resistant Organisms: None Reported Past Surgical History: No Surgical Hx Reported Past Psychological History: Anxiety, Depression, Panic Disorder Smoking Status: Current every day smoker Past Alcohol Use History: None Reported Past Drug Use History: None Reported General Exam - General Exam Comments Initial Comments: 28-year-old female. Alert and oriented. No distress. Limitations: no limitations General appearance: alert, in no apparent distress Head exam: Present: atraumatic, normocephalic, normal inspection Eye exam: Present: normal appearance, PERRL, EOMI. Absent: scleral icterus, conjunctival injection, periorbital swelling ENT exam: Present: normal exam, mucous membranes moist Neck exam: Present: normal inspection. Absent: tenderness, meningismus, lymphadenopathy Respiratory exam: Present: normal lung sounds bilaterally. Absent: respiratory distress, wheezes, rales, rhonchi, stridor Cardiovascular Exam: Present: regular rate, normal rhythm, normal heart sounds. Absent: systolic murmur, diastolic murmur, rubs, gallop, clicks GI/Abdominal exam: Present: soft, normal bowel sounds. Absent: distended, tenderness, guarding, rebound, rigid Extremities exam: Present: normal inspection Back exam: Present: normal inspection Neurological exam: Present: alert, oriented X3, CN II-XII intact Psychiatric exam: Present: normal affect, normal mood Course Vital Signs 11/12/18 16:23 Temperature 98.3 F Pulse Rate 84 Respiratory 16 Rate Blood Pressure 107/71 O2 Sat by Pulse 97 Oximetry EKG Findings - EKG Comments: EKG Findings:: EKG shows unusual P axis possible ectopic atrial rhythm and normal EKG. Ventricular 73 bpm. Was 1:30 most seconds. She gnosticism 76 most seconds. QT QTC 376/404 ms. Medical Decision Making - Medical Decision Making 28-year-old male presents emergency department today complaining of dizziness lightheadedness and left arm tingling. She is no neurological deficits. Otherwise appears clinically well. She is given IV fluids labwork obtained. No indicated for any acute changes. Patient does have a significant history of anxiety. Discussed that most likely related patient's symptoms at this time. Patient's agreeing. Patient will be discharged with a small PCP. Also reports that she recently increased her anxiety medications this past week and was started on clonazepam. Discussed the clonazepam could cause some dizziness and lightheadedness. Patient agrees. She is discontinuing this medication at this time. - Lab Data Result diagrams: 11/12/18 18:45 11/12/18 18:45 Lab Results 11/12/18 11/12/18 11/12/18 Range/Units 18:30 18:45 18:45 WBC 6.4 (3.8-10.6) k/uL RBC 4.95 (3.80-5.40) m/uL Hgb 14.2 (11.4-16.0) gm/dL Hct 44.1 (34.0-46.0) % MCV 88.9 (80.0-100.0) fL MCH 28.7 (25.0-35.0) pg MCHC 32.3 (31.0-37.0) g/dL RDW 13.6 (11.5-15.5) % Plt Count 328 (150-450) k/uL Neutrophils % 60 % Lymphocytes % 29 % Monocytes % 6 % Eosinophils % 2 % Basophils % 1 % Neutrophils # 3.8 (1.3-7.7) k/uL Lymphocytes # 1.9 (1.0-4.8) k/uL Monocytes # 0.4 (0-1.0) k/uL Eosinophils # 0.2 (0-0.7) k/uL Basophils # 0.0 (0-0.2) k/uL Sodium 141 (137-145) mmol/L Potassium 4.1 (3.5-5.1) mmol/L Chloride 106 (98-107) mmol/L Carbon Dioxide 27 (22-30) mmol/L Anion Gap 8 mmol/L BUN 9 (7-17) mg/dL Creatinine 0.56 (0.52-1.04) mg/dL Est GFR (CKD-EPI)AfAm >90 (>60 ml/min/1.73 sqM) Est GFR (CKD-EPI)NonAf >90 (>60 ml/min/1.73 sqM) Glucose 82 (74-99) mg/dL Calcium 9.8 (8.4-10.2) mg/dL Urine Color Light Yellow Urine Appearance Clear (Clear) Urine pH 7.5 (5.0-8.0) Ur Specific [place] 1.004 (1.001-1.035) Urine Protein Negative (Negative) Urine Glucose (UA) Negative (Negative) Urine Ketones Negative (Negative) Urine Blood Small H (Negative) Urine Nitrite Negative (Negative) Urine Bilirubin Negative (Negative) Urine Urobilinogen <2.0 (<2.0) mg/dL Ur Leukocyte Esterase Negative (Negative) Urine RBC <1 (0-5) /hpf Urine WBC <1 (0-5) /hpf Ur Squamous Epith Cells 1 (0-4) /hpf Amorphous Sediment Rare H (None) /hpf - Radiology Data Radiology results: report reviewed Disposition Clinical Impression: Anxiety, Dizziness Disposition: HOME SELF-CARE Condition: Good Instructions (If sedation given, give patient instructions): Generalized Anxiety Disorder (ED) Additional Instructions: Patient advised to follow-up with primary care provider. Return to emergency department if any alarming symptoms occur. Rest, remain hydrated. Is patient prescribed a controlled substance at d/c from ED?: No Referrals: Leelee Messina MD [Primary Care Provider] - 1-2 days Time of Disposition: 19:24
[2018-11-12 19:04] LABS: Basophils % (A) 1 %; Eosinophils # (A) 0.2 k/uL (0-0.7); Eosinophils % (A) 2 %; HCT 44.1 % (34.0-46.0); HGB 14.2 gm/dL (11.4-16.0); Lymphocytes # (A) 1.9 k/uL (1.0-4.8); Lymphocytes % (A) 29 %; MCH 28.7 pg (25.0-35.0); MCHC 32.3 g/dL (31.0-37.0); MCV 88.9 fL (80.0-100.0); Monocytes # (A) 0.4 k/uL (0-1.0); Monocytes % (A) 6 %; Neutrophils # (A) 3.8 k/uL (1.3-7.7); Neutrophils % (A) 60 %; Platelet Count 328 k/uL (150-450); RBC 4.95 m/uL (3.80-5.40); RDW 13.6 % (11.5-15.5); WBC 6.4 k/uL (3.8-10.6)
[2018-11-12 19:14] LABS: Anion Gap 8 mmol/L; Blood Urea Nitrogen 9 mg/dL (7-17); Calcium 9.8 mg/dL (8.4-10.2); Carbon Dioxide 27 mmol/L (22-30); Chloride 106 mmol/L (98-107); Glucose 82 mg/dL (74-99); Potassium 4.1 mmol/L (3.5-5.1); Sodium 141 mmol/L (137-145)
[2018-11-12 19:16] LABS: Amorphous Sediment,Urine Rare /hpf; Appearance,Urine Clear (Clear); Bilirubin,Urine Negative (Negative); Blood,Urine Small (Negative); Color,Urine Light Yellow; Glucose,Urine (UA) Negative (Negative); Ketones,Urine Negative (Negative); Leukocyte Esterase,Urine Negative (Negative); Nitrite,Urine Negative (Negative); PH, Urine 7.5 (5.0-8.0); Protein,Urine Negative (Negative); RBC,Urine <1 /hpf (0-5); Specific Gravity,Urine 1.004 (1.001-1.035); Squamous Epithelial Cell,Urine 1 /hpf (0-4); Urobilinogen,Urine <2.0 mg/dL (<2.0); WBC,Urine <1 /hpf (0-5)
== END 2018-11-12 19:54 | disposition home or self-care (01) ==
LOC: EC 16:12
DX: F41.9 Anxiety disorder, unspecified (principal); R42 Dizziness and giddiness; R20.2 Paresthesia of skin; F32.9 Major depressive disorder, single episode, unspecified; F17.200 Nicotine dependence, unspecified, uncomplicated; Z79.899 Other long term (current) drug therapy
CPT/HCPCS: 36415; 80048; 81001; 85025; 93005; 96360; 99284